=== PATIENT | female | born 1950 | race Caucasian/White ===

== ENCOUNTER 2016-11-25 12:20 | Outpatient (CLI) | payer MEDICARE, OTHER ==
[~2016-11-25] VITALS: Ht 162.6 cm; Wt 109.3 kg
[~2016-11-25 12:20] MED LIST changes: -ACET-2469 PO; -ACET-2650 PO; -ACETAMINOPHEN 325 MG TABLET/CAPLET (TYLENOL) PO ONE; -ASPI-586 PO; -CHOL500044 PO; -CYAN50005 PO; -FUROSEMIDE 40 MG/4 ML INJ (LASIX) IV ONE; -FUROSEMIDE 40 MG/4 ML INJ (LASIX) ONE; -GLIP5TAB13 PO; -HYDR-3730 PO; -LOSA25TA21 PO; -METF1000 PO; -NAPR1TAB25 PO; -NAPR220T66 PO; -NS IV 500 ML 500 ML IV SCH; -PANT40TA3 PO; -PRAM0.12 PO; -PYRI100T2 PO; -[UNRECOGNIZED DRUG - OTHER] PO; -[UNRECOGNIZED DRUG - OTHER] PO; -diphenhydrAMINE 25 MG TAB (BENADRYL) PO ONE
--- OUTSIDE RECORDS SUMMARY | 2016-11-25 12:24 | XMS REPORT | Continuity of Care Document ---
Author Author [facility] Organization [facility] Address Unknown Phone Unavailable Care Team Providers Care Macadam Raker Name Role Phone SUZANNE SALINAS MD PCP Insurance Providers Payer Name Policy Number Subscriber Name Relationship [employer] [id number] Sixto Asencio 18 Self / Same As Patient Blue Cross [facility] Supp [id number] Sixto Asencio 18 Self / Same As Patient Advance Directives Directive Response Recorded Date/Time Advance Directives No 11/30/14 8:33am Health Care Power of [employer] Docent No 11/30/14 8:33am Organ Donor Yes 11/30/14 8:33am Resuscitation Status Full Code 11/30/14 8:33am Problems No known problems or medical conditions. Medications Medication Dose Route Sig Days/Qty Instructions Order Date Discontinued Date Status Metformin HCl (Glucophage) 1 Each PO DAILY 07/03/11 08/19/11 Discontinued Levothyroxine Sodium (Levothroid) 1 Each PO DAILY 07/03/11 11/30/14 Discontinued Hydrochlorothiazide 1 Each PO DAILY 07/03/11 08/19/11 Discontinued Simvastatin 40 Mg PO DAILY 07/03/11 11/30/14 Discontinued Sertraline Hcl 100 Mg PO DAILY 07/03/11 11/30/14 Discontinued Orphenadrine Citrate 100 Mg PO TWICE A DAY 07/03/11 08/19/11 Discontinued Topiramate 50 Mg PO AM 07/03/11 11/30/14 Discontinued Topiramate 100 Mg PO BEDTIME 07/03/11 11/30/14 Discontinued Acetaminophen/Hydrocodone Bitart 1 Each PO Q6 PRN DO NOT TAKE THIS MED WHILE 07/03/11 11/30/14 Discontinued Fexofenadine Hcl 180 Mg PO DAILY PRN 07/03/11 10/02/11 Discontinued Multivitamins 1 Tab PO DAILY 07/03/11 11/30/14 Discontinued Calcium Carbonate/Vitamin D3 1 Each PO DAILY 07/03/11 11/30/14 Discontinued Sitagliptin Phosphate 1 Each PO DAILY 08/19/11 05/22/12 Discontinued Lisinopril 40 Mg PO DAILY 08/19/11 05/22/12 Discontinued Esomeprazole Magnesium 1 Cap PO DAILY 08/19/11 10/02/11 Discontinued Oxycodone Hcl/Acetaminophen 1 - 2 Each PO 4-6HRS PRN 40 Qty MOUTH EVERY 4 -6 HRS 08/21/11 05/22/12 Discontinued Omeprazole 40 Mg PO DAILY 10/02/11 11/30/14 Discontinued Fenofibrate 1 Each PO DAILY 10/02/11 05/22/12 Discontinued Linagliptin 5 Mg PO DAILY 05/22/12 11/30/14 Discontinued Dicyclomine Hcl 10 Mg PO THREE TIMES A DAY 05/22/12 11/30/14 Discontinued Simvastatin 40 Mg PO DAILY 05/22/12 11/30/14 Discontinued Loratadine 10 Mg PO DAILY 05/22/12 11/30/14 Discontinued Cranberry Extract 200 Mg PO DAILY 05/22/12 11/30/14 Discontinued Cholecalciferol (Vitamin D3) 4,000 Unit PO DAILY 05/22/12 11/30/14 Discontinued Topiramate 100 Mg PO TWICE A DAY 11/30/14 Active Vit/Fe Fumarate/Fa 1 Tab PO DAILY 11/30/14 Active Ca Carbonate/Vitamin D3/Vit K 1 Tab PO DAILY 11/30/14 Active Cholecalciferol (Vitamin D3) 1,000 Unit PO DAILY 11/30/14 Active Metformin HCl (Glucophage) 750 Mg PO TWICE A DAY WITH MEALS 11/30/14 11/30/14 Discontinued Oxybutynin Chloride (Ditropan) 5 Mg PO TWICE A DAY 11/30/14 Active Cyanocobalamin 2,500 Mcg SL DAILY 11/30/14 Active Hydrochlorothiazide 25 Mg PO DAILY 11/30/14 Active Potassium Chloride 20 Meq PO DAILY 11/30/14 Active Atorvastatin 20 Mg PO DAILY 11/30/14 Active Levothyroxine Sodium (Levothroid) 100 Mcg PO DAILY 11/30/14 Active Omeprazole 20 Mg PO DAILY 11/30/14 11/30/14 Discontinued Linaclotide 145 Mcg PO DAILY 11/30/14 Active Esomeprazole Magnesium 40 Mg PO 1000 11/30/14 11/30/14 Discontinued Tetrahydrozoline Hcl 1 Drop OU DAILY PRN DRY EYES 11/30/14 Active Metformin Hcl 750 Mg PO TWICE A DAY TAKES 1 & 1/2 (500MG) TABLET Active Pantoprazole Sodium 40 Mg PO TWICE A DAY 90 Qty 11/30/14 Active Social History Social History Problem Response Recorded Date/Time Recent Foreign Travel No 11/30/2014 8:47am Smoking Status Former Smoker 11/30/2014 8:40am Do you dip or chew tobacco? No 11/30/2014 8:40am Query Response Start Date Stop Date Smoking Status Former Smoker 11/30/1986 Hospital Discharge Instructions No hospital discharge instructions. Plan of Care No plan of care. Functional Status No functional status results. Allergies, Adverse Reactions, Alerts Allergen Type Severity Reaction Status Last Updated Adhesive Bandage Allergy Unknown Active 11/30/14 Immunizations Name Given Type Date of Pneumonia Vaccine 11/30/13 Historical Date of Influenza Vaccine 07/01/14 Historical Vital Signs Acute Vital Signs Vital Response Date/Time Temperature (Fahrenheit) 97.5 degrees F (97.6 - 99.5) Temperature (Calculated Celsius) 36.78352 degrees C (36.4 - 37.5) Temperature Source Tympanic Pulse Rate (adult) 68 bpm (60 - 90) Respiratory Rate 18 bpm (12 - 24) O2 Sat by Pulse Oximetry 97 % (88 - 100) Blood Pressure 108/53 mm Hg Pain Pain Intensity 0 Height (Feet) 5 feet Height (Inches) 4.00 inches Height (Calculated Centimeters) 162.130835 cm Weight (Pounds) 234 pounds Weight (Calculated Grams) 217721.616 gm Weight (Calculated Kilograms) 106.795158 kilograms Height 5 ft 4 in Weight 234 lb Body Mass Index 40.2 kg/m^2 Results No known relevant diagnostic tests, laboratory data and/or discharge summary. Procedures Procedure Status Date Provider(s) Esophagogastroduodenoscopy (EGD) with dilation completed 11/30/14 BOBBY YOUNGER MD Encounters Encounter Location Date/Time Registered [facility] Day [facility] 11/30/14 8:05am Registered Clinic [facility] 11/24/14 9:48am
[2016-11-25] MEDS ORDERED: ACET-2650 PO (12:49)
[2016-11-25] MEDS ORDERED: CHOL500044 PO (12:49)
[2016-11-25] MEDS ORDERED: PRAM0.12 PO (12:49)
[2016-11-25] MEDS ORDERED: LOSA25TA21 PO (12:49)
[2016-11-25] MEDS ORDERED: [UNRECOGNIZED DRUG - OTHER] PO (12:49)
[2016-11-25] MEDS ORDERED: NAPR220T66 PO (12:49)
[2016-11-25] MEDS ORDERED: PANT40TA3 PO (12:49)
[2016-11-25] MEDS ORDERED: PYRI100T2 PO (12:49)
[2016-11-25] MEDS ORDERED: GLIP5TAB13 PO (12:49)
[2016-11-25] MEDS ORDERED: [UNRECOGNIZED DRUG - OTHER] PO (12:49)
[2016-11-25] MEDS ORDERED: METF1000 PO (12:49)
[2016-11-25] MEDS ORDERED: NAPR1TAB25 PO (12:49)
[2016-11-25] MEDS ORDERED: ASPI-586 PO (12:49)
[2016-11-25] MEDS ORDERED: CYAN50005 PO (12:49)
[2016-11-25 12:59] VITALS: BP 162/86
[2016-11-28] MEDS ORDERED: HYDR-3730 PO (10:08)
== END 2016-11-25 13:20 | disposition home or self-care (01) ==
LOC: PREOP 12:20
PROVIDERS: ATTEND Surgery Pediatric Surgery
DX: Z01.818 Encounter for other preprocedural examination (principal); Z11.2 Encounter for screening for other bacterial diseases; K21.9 Gastro-esophageal reflux disease without esophagitis
CPT/HCPCS: 87081

== ENCOUNTER → 2016-11-25 | Outpatient (CLI) | payer MEDICARE, OTHER ==
[~2016-11-25] VITALS: Ht 162.6 cm; Wt 109.3 kg
[2016-11-25] VITALS (9 sets, daily range): BP systolic 162–186; BP diastolic 75–86
[~2016-11-25] MED LIST: ACET-2469 PO; ACET-2650 PO; ACETAMINOPHEN 325 MG TABLET/CAPLET (TYLENOL) PO ONE; ACHD5005 PO; ASPI-586 PO; ATOR20TA66 PO; CA C1TAB66 PO; CALC-80 PO; CHOL100061 PO; CHOL40002 PO; CHOL500044 PO; CRAN200C PO; CYAN25003 SL; CYAN50005 PO; DICY10CA12 PO; FENO135C PO; FEXO180T94 PO; FUROSEMIDE 40 MG/4 ML INJ (LASIX) IV ONE; FUROSEMIDE 40 MG/4 ML INJ (LASIX) ONE; GLIP5TAB13 PO; HCT25T PO; HYDR-3730 PO; HYDR25TA4 PO; LEVO125T6 PO; LINA145C PO; LINA5TAB PO; LISI40TA PO; LORA10TA7 PO; LOSA25TA21 PO; LVT.1T PO; METF1000 PO; METF500T8 PO; MTF500T PO; MULT-608 PO; NAPR1TAB25 PO; NAPR220T66 PO; NF-ESOM40C PO; NFPRILOC40 PO; NS IV 500 ML 500 ML IV SCH; OMEP20CA12 PO; ORPH100T PO; OXYB5TAB9 PO; OXYC-12 PO; PANT20TA2 PO; PANT40TA3 PO; POTA-51 PO; PRAM0.12 PO; PREN-93 PO; PYRI100T2 PO; SERT100T PO; SIMV40TA4 PO; SITA100T PO; TETR15DR82 OU; TOPI100T2 PO; TOPI50TA2 PO; [UNRECOGNIZED DRUG - OTHER] PO; [UNRECOGNIZED DRUG - OTHER] PO; diphenhydrAMINE 25 MG TAB (BENADRYL) PO ONE
--- OUTSIDE RECORDS SUMMARY | 2016-11-25 12:32 | XMS REPORT | Continuity of Care Document ---
Author Author [facility] Organization [facility] Address Unknown Phone Unavailable Care Team Providers Care Thaw Shed Heater Tender Name Role Phone SUZANNE SALINAS MD PCP Insurance Providers Payer Name Policy Number Subscriber Name Relationship [employer] Medicare [id number] Sixto Asencio 18 Self / Same As Patient Blue Cross [facility] Supp [id number] Sixto Asencio 16 Self / Same As Patient Advance Directives Directive Response Recorded Date/Time Advance Directives No 11/30/14 8:33am Health Care Power of Janitor Supervisor No 11/30/14 8:33am Organ Donor Yes 11/30/14 [...] F (97.6 - 99.5) Temperature (Calculated Celsius) 36.57938 degrees C (36.4 - 37.5) Temperature Source Tympanic Pulse Rate (adult) 68 bpm (60 - 90) Respiratory Rate 18 bpm (12 - 24) O2 Sat by Pulse Oximetry 97 % (88 - 100) Blood Pressure 108/53 mm Hg Pain Pain Intensity 0 Height (Feet) 5 feet Height (Inches) 4.00 inches Height (Calculated Centimeters) 162.536351 cm Weight (Pounds) 234 pounds Weight (Calculated Grams) 183237.616 gm Weight (Calculated Kilograms) 106.597544 kilograms Height 5 ft 4 in Weight 234 lb Body Mass Index 40.2 kg/m^2 Results No known relevant diagnostic tests, laboratory data and/or discharge summary. Procedures Procedure Status Date Provider(s) Esophagogastroduodenoscopy (EGD) with dilation completed 11/30/14 BOBBY YOUNGER MD Encounters Encounter Location Date/Time Registered Surgical Day Care [facility] 11/30/14 8:05am Registered Clinic [facility] 11/24/14 9:48am
== END ==
LOC: SDC 12:28
PROVIDERS: ATTEND Nurse Practitioner Family
DX: D64.9 Anemia, unspecified (principal)
CPT/HCPCS: 36415; 36430; 85014; 85018; 86850; 86900; 86901; 86920

== ENCOUNTER 2016-11-28 06:29 | Inpatient (IN) | payer MEDICARE, OTHER ==
[~2016-11-28] VITALS: Ht 162.6 cm; Wt 109.3 kg
[~2016-11-28 06:29] MED LIST changes: +ACET-2650 PO; +ASPI-586 PO; +CHOL500044 PO; +CYAN50005 PO; +GLIP5TAB13 PO; +LOSA25TA21 PO; +METF1000 PO; +NAPR1TAB25 PO; +NAPR220T66 PO; +PANT40TA3 PO; +PRAM0.12 PO; +PYRI100T2 PO; +[UNRECOGNIZED DRUG - OTHER] PO; +[UNRECOGNIZED DRUG - OTHER] PO
[2016-11-28] MEDS: LACTATED RINGERS 1,000 ML IV PRN ×2 (06:40→09:32)
[2016-11-28 06:45] VITALS: BP 144/79
[2016-11-28 06:52] LABS: BASOPHILS # (AUTO) 0.1 10^3/uL (0.0-0.1); BASOPHILS % (AUTO) 1 % (0-10); EOSINOPHILS # (AUTO) 0.3 10^3/uL (0.0-0.3); EOSINOPHILS % (AUTO) 4 % (0-10); LYMPHOCYTES # (AUTO) 1.9 X 10^3 (1.0-4.0); LYMPHOCYTES % (AUTO) 26 % (12-44); MEAN CORPUSCULAR HEMOGLOBIN 21 PG (25-34); MEAN CORPUSCULAR HGB CONC 30 G/DL (32-36); MEAN CORPUSCULAR VOLUME 70 FL (80-99); MONOCYTES # (AUTO) 0.5 X 10^3 (0.0-1.0); MONOCYTES % (AUTO) 8 % (0-12); NEUTROPHILS # (AUTO) 4.5 X 10^3 (1.8-7.8); NEUTROPHILS % (AUTO) 62 % (42-75); PLATELET COUNT 267 10^3/uL (130-400); RED BLOOD COUNT 4.96 10^6/uL (4.35-5.85); RED CELL DISTRIBUTION WIDTH 23.5 % (10.0-14.5); WHITE BLOOD COUNT 7.2 10^3/uL (4.3-11.0)
[2016-11-28] MEDS ORDERED: BUP/EPI 0.5% 1:200,000 (SENSORCAINE) 30 ML VIAL ONE (07:08)
[2016-11-28] MEDS ORDERED: ceFAZolin 1 GM/NS 50 ML IVPB IV ONE ×2 (07:15)
[2016-11-28] MEDS ORDERED: ACET-2469 PO (07:20)
[2016-11-28] MEDS ORDERED: ONDANSETRON 4 MG/2 ML (SDV) Z0FRAN ONE ×2 (07:20→07:45)
[2016-11-28] MEDS ORDERED: ROCURONIUM 50 MG/5 ML (ZEMURON) VIAL IV ONE (07:20)
[2016-11-28] MEDS ORDERED: SEVOFLURANE (ULTANE) 15 ML INHAL SOLN ONE ×5 (07:20→10:10)
[2016-11-28] MEDS ORDERED: LIDOCAINE PF 2% 10 ML (XYLOCAINE) AMP ONE (07:20)
[2016-11-28] MEDS ORDERED: proPOfol 200 MG/20 ML (DIPRIVAN) VIAL IV ONE (07:20)
[2016-11-28] MEDS ORDERED: LACTATED RINGERS 1,000 ML IV ONE ×2 (07:20→09:32)
[2016-11-28] MEDS ORDERED: fentaNYL INJECTION 250 MCG/5 ML AMP ONE (07:20)
[2016-11-28] MEDS ORDERED: MIDAZOLAM 2 MG/2 ML (VERSED) VIAL ONE (07:21)
[2016-11-28] MEDS ORDERED: FAMOTIDINE 20MG/2ML IV (PEPCID) ONE (07:45)
--- NOTE | 2016-11-28 07:53 | Progress Note-Pre Operative ---
Pre-Operative Progress Note H&P Reviewed The H&P was reviewed, patient examined and no changes noted. Date H&P Reviewed: Nov 28, 2016 Time H&P Reviewed: 07:40 Pre-Operative Diagnosis: Reflux, regurgation, abdominal pain LINNEA ARGUETA APRN Nov 28, 2016 07:53
[2016-11-28] MEDS ORDERED: HYDROcodone/APAP 5 MG/325 MG (LORTAB) TAB PO ONE (08:00)
[2016-11-28] MEDS ORDERED: FAMOTIDINE 20MG/2ML IV (PEPCID) IV ONE (08:00)
[2016-11-28] MEDS ORDERED: ONDANSETRON 4 MG/2 ML (SDV) Z0FRAN IVP PRN (08:00)
[2016-11-28] MEDS ORDERED: ONDANSETRON 4 MG/2 ML (SDV) Z0FRAN IV ONE ×2 (08:00→10:30)
[2016-11-28] MEDS ORDERED: ACETAMINOPHEN 325 MG TABLET/CAPLET (TYLENOL) PO PRN (08:00)
[2016-11-28] MEDS ORDERED: morphine INJ 10 MG/ML 1ML (SYR OR VIAL) IVP PRN (08:00)
--- NOTE | 2016-11-28 10:04 | Progress Note-Post Operative ---
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
[2016-11-28] MEDS ORDERED: GLYCOPYRROLATE 0.2 MG/ML (ROBINUL) 2 ML VIAL ONE (10:08)
[2016-11-28] MEDS ORDERED: HYDR-3730 PO (10:08)
[2016-11-28] MEDS ORDERED: NEOSTIGMINE (BLOXIVERZ ) 1 MG/1ML 10 ML VIAL ONE (10:08)
--- NOTE | 2016-11-28 10:09 | Discharge Inst-Surgical ---
D/C Lap Instructions-CARISA New, Converted, or Re-Newed RX: RX on Chart Follow Up Appt in 2 weeks Activity as tolerated No driving for 24 hours No [address] while on pain medications Incentive Spirometry use every 2 hours while awake clear liquid Diet 3 days then advance as tolerated Symptoms to Report: Fever over 101 degree F, Nausea/Vomiting Infection Signs and Symptoms to report: Increased redness, Foul odor of wound, Increased drainage Bathing instructions: May shower Operative Area Clean/Dry; Keep incision clean/dry If any problems/questions: Contact your physician or go to Emergency Room BOBBY YOUNGER MD Nov 28, 2016 10:09 am
[2016-11-28] MEDS ORDERED: morphine INJ 10 MG/ML 1ML (SYR OR VIAL) ONE (10:25)
[2016-11-28] MEDS ORDERED: fentaNYL INJECTION 100 MCG/2 ML AMP IV PRN (10:30)
[2016-11-28] MEDS ORDERED: HYDROmorphone (DILAUDID) 2 MG/ML VIAL IV PRN (10:30)
[2016-11-28] MEDS: morphine INJ 10 MG/ML 1ML (SYR OR VIAL) IV PRN ×2 (10:31→10:38)
[2016-11-28] MEDS ORDERED: HYDROmorphone (DILAUDID) 2 MG/ML VIAL ONE (10:45)
--- NOTE | 2016-11-28 11:03 | Anesthesia-General Post-Op ---
General Patient Condition Mental Status/LOC: Same as Preop Cardiovascular: Satisfactory Nausea/Vomiting: Absent Respiratory: Satisfactory Pain: Controlled Complications: Absent Post Op Complications Complications None Follow Up Care/Instructions Patient Instructions None needed. Anesthesia/Patient Condition Patient Condition Patient is doing well, no complaints, stable vital signs, no apparent adverse anesthesia problems. No complications reported per nursing. D/C home per [facility] Criteria: SUGEY Glover DO Nov 28, 2016 11:03
[2016-11-28] MEDS ORDERED: HYDROcodone/APAP 7.5 MG/325 MG (LORTAB, LORCET PLUS) TABLET PO ONE (11:13)
[2016-11-28 11:15] VITALS: BP 137/61
[2016-11-28] MEDS ORDERED: HYDROcodone/APAP 7.5 MG/325 MG (LORTAB, LORCET PLUS) TABLET PO PRN ×2 (11:30)
[2016-11-28 11:45] VITALS: BP 130/61
[2016-11-28] MEDS ORDERED: KETOROLAC 30 MG/ML VIAL ONE (11:54)
[2016-11-28] MEDS ORDERED: KETOROLAC 30 MG/ML VIAL IVP ONE (12:00)
--- NOTE | 2016-11-28 12:13 | OPERATIVE REPORT ---
PROCEDURE PHYSICIAN: BOBBY NEUMANN DATE OF PROCEDURE: 11/28/2016 ATTENDING PRIMARY CARE PHYSICIAN: Dr. Gloria Gorman. PREOPERATIVE DIAGNOSIS: 1. Gastroesophageal reflux disease. 2. Peptic ulcer disease. 3. Anemia requiring blood transfusion. POSTOPERATIVE DIAGNOSIS: 1. Gastroesophageal reflux disease. 2. Peptic ulcer disease. 3. Anemia requiring blood transfusion. 4. Mild inferior gastric restrictive device slippage. PROCEDURE: Diagnostic laparoscopy and removal gastric restrictive device and access port. SURGEON: Dr. Neumann. SHOP COOPER: Govind Barton APRN ANESTHESIA: General endotracheal. ESTIMATED BLOOD LOSS: Minimal. FINDINGS: Mild inferior band slippage. There was hepatomegaly and liver steatosis. DISPOSITION: The patient tolerated the procedure well. BRIEF HISTORY: Ms. Leandra Reyes is a 66-year-old female known to us. She is status post laparoscopic adjustable gastric band with an Allergan BG band March 2006 in [place]. She has followed-up with us on multiple times for postoperative counseling as well as adjustments. She has had a long-standing history of gastroesophageal reflux disease; however, has had worsening issues with reflux as well as regurgitation despite having fluid removed from the band. She does state that she exercises regularly at the [facility] 3 to 4 times a week for 60 minutes sessions. She does follow a high protein diet with lean meat protein sources and does take at least 64 fluid ounces of water daily. She has taken multiple PPI acid reducers including Nexium, Protonix and Carafate. She was found to be anemic on several occasions requiring blood transfusion well. The patient was brought to the operating room, laid supine on the table. After adequate IV pain and sedative medications and general endotracheal intubation the abdomen was prepped and draped in the standard surgical fashion. 0.5% Marcaine with epinephrine was then used to anesthetize the overlying skin in left upper abdominal quadrant. A small transverse incision made using a 15 blade. An 0 silk suture was applied to the medial aspect of the incision for retraction. A Veress needle inserted with a low opening pressure of 0 mmHg the abdomen was then insufflated to 15 mmHg pressure. The Veress needle removed and a 5 mm Xcel trocar placed followed by a 5 mm, 45 degrees angle laparoscope, visualizing the peritoneal cavity. A four-quadrant abdominal exploration was performed. The gastric restrictive device was not visualized at this time. There was moderate hepatomegaly with liver steatosis identified as well. Under direct visualization we then proceeded to place the two mid abdominal 10 mm ports after the skin and peritoneum were anesthetized using 0.5% Marcaine and a transverse skin incision made using a 15 blade. An area in the epigastric region was then anesthetized and a small skin incision made using an 11 blade. Through this Incision a tract through the abdominal wall layers was created using trocar to a 5 mm port. Through this opening, a medium size Yue liver retractor was placed in the left lobe of the liver and retracted anteriorly and superiorly. The patient was then placed in a steep reverse Trendelenburg position. The gastric restrictive device was identified and appeared to be a slightly enlarged gastric pouch and a mild inferior band slippage. Due to this and her history of anemia it was decided to remove the gastric restrictive device as well at the access port. The adhesion tissue to the band buckle was taken down using Sonicision. The band was then unclasped. The band tubing was cut next to the port and the entire band removed intact. Good hemostasis was observed. The 10 mm port, fascia and peritoneum were then closed under direct visualization using a Jb-Ju device and 0 Vicryl suture. The abdomen was desufflated. The skin incision to the mid abdominal right of midline port was then extended laterally and the entire port attached to the fascia as well as the sutures were removed using electrocautery. Good hemostasis was observed. The subcutaneous tissue was then reapproximated using 3-0 Vicryl interrupted sutures. Remaining port removed and all skin incisions were closed using 4-0 Monocryl running subcuticular sutures. Wounds were then cleaned and covered Dermabond. The patient tolerated the procedure well. We will start IV pain and oral medication as well as a clear liquid diet. Once she is tolerating clears, has good pain control with oral pain medications and ambulating well, we will discharge her home. We will recommend a clear liquid diet for the next week and then slowly advanced as tolerated. We will also want her to continue with her PPI acid sewing line baler on a daily basis. Job ID: [id number] Dictated Date: 11/28/2016 10:18:01 Energy Derivatives Trader Date: 11/28/2016 11:52:23 / kedar
[2016-11-28 12:15] VITALS: BP 131/68
[2016-11-28 12:51] VITALS: BP 131/68
--- OUTSIDE RECORDS SUMMARY | 2016-12-01 08:14 | XMS REPORT | Continuity of Care Document ---
Author Author [facility] Address Unknown Phone Unavailable Allergies Active Description Code Type Severity Reaction Onset Reported/Identified Relationship to Patient Clinical Status Yes Adhesive Bandage [id number] Drug Allergy Unknown N/A 11/30/2014 Yes nickel [id number] Drug Allergy Unknown HIVES 11/25/2016 Medications Problems Date Dx Coded Attending Type Code Diagnosis Diagnosed By 08/21/2011 Ot 272.4 HYPERLIPIDEMIA NEC/NOS 08/21/2011 Ot 401.9 HYPERTENSION NOS 08/21/2011 Ot 727.61 ROTATOR CUFF RUPTURE 08/21/2011 Ot 729.1 MYALGIA AND MYOSITIS NOS 08/21/2011 Ot V15.82 HISTORY OF TOBACCO USE 08/21/2011 Ot V58.69 OTH MED,LT,CURRENT USE 10/02/2011 Ot 719.41 JOINT PAIN-SHLDER 10/02/2011 Ot 923.00 CONTUSION SHOULDER REG 10/02/2011 Ot E000.8 OTHER EXTERNAL CAUSE STATUS 10/02/2011 Ot E849.0 ACCIDENT IN HOME 10/02/2011 Ot E884.4 FALL FROM BED 05/25/2012 Ot 562.10 DIVERTICULOSIS COLON (W/O MENT OF HEMORR 05/25/2012 Ot 564.1 IRRITABLE BOWEL SYNDROME 05/25/2012 Ot V58.69 OT MED,LT,CURRENT USE 04/22/2013 244.9 HYPOTHYROIDISM 04/22/2013 250.00 DIABETES II CONTROLLED (UNCOMPLICATED) 04/22/2013 272.4 HYPERLIPIDEMIA 04/22/2013 401.1 HYPERTENSION, BENIGN ESSENTIAL 04/22/2013 V82.81 SPECIAL SCREENING FOR OSTEOPOROSIS 04/22/2013 244.9 HYPOTHYROIDISM 04/22/2013 250.00 DIABETES II CONTROLLED (UNCOMPLICATED) 04/22/2013 272.4 HYPERLIPIDEMIA 04/22/2013 401.1 HYPERTENSION, BENIGN ESSENTIAL 04/22/2013 V82.81 SPECIAL SCREENING FOR OSTEOPOROSIS 04/22/2013 244.9 HYPOTHYROIDISM 04/22/2013 250.00 DIABETES II CONTROLLED (UNCOMPLICATED) 04/22/2013 272.4 HYPERLIPIDEMIA 04/22/2013 401.1 HYPERTENSION, BENIGN ESSENTIAL 04/22/2013 V82.81 SPECIAL SCREENING FOR OSTEOPOROSIS 04/22/2013 TORRES DO, JAZZY K 244.9 HYPOTHYROIDISM 04/22/2013 TORRES DO, JAZZY K 250.00 DIABETES II CONTROLLED (UNCOMPLICATED) 04/22/2013 TORRES DO, JAZZY K 272.4 HYPERLIPIDEMIA 04/22/2013 OTRRES DO, JAZZY K 401.1 HYPERTENSION, BENIGN ESSENTIAL 04/22/2013 TORRES DO, JAZZY K V82.81 SPECIAL SCREENING FOR OSTEOPOROSIS 04/22/2013 MALIA TAI MD N 244.9 HYPOTHYROIDISM 04/22/2013 MALIA TAI MD N 250.00 DIABETES II CONTROLLED (UNCOMPLICATED) 04/22/2013 MALIA TAI MD N 272.4 HYPERLIPIDEMIA 04/22/2013 MALIA TAI MD N 401.1 HYPERTENSION, BENIGN ESSENTIAL 04/22/2013 MALIA TAI MD N V82.81 SPECIAL SCREENING FOR OSTEOPOROSIS 04/22/2013 MALIA TAI MD N 244.9 HYPOTHYROIDISM 04/22/2013 MALIA TAI MD N 250.00 DIABETES II CONTROLLED (UNCOMPLICATED) 04/22/2013 MALIA TAI MD N 272.4 HYPERLIPIDEMIA 04/22/2013 MALIA TAI MD N 401.1 HYPERTENSION, BENIGN ESSENTIAL 04/22/2013 MALIA TAI MD N V82.81 SPECIAL SCREENING FOR OSTEOPOROSIS 04/22/2013 MALIA TAI MD N 244.9 HYPOTHYROIDISM 04/22/2013 MALIA TAI MD N 250.00 DIABETES II CONTROLLED (UNCOMPLICATED) 04/22/2013 MALIA TAI MD N 272.4 HYPERLIPIDEMIA 04/22/2013 MALIA TAI MD N 401.1 HYPERTENSION, BENIGN ESSENTIAL 04/22/2013 MALIA TAI MD N V82.81 SPECIAL SCREENING FOR OSTEOPOROSIS 04/22/2013 MALIA TAI MD N 244.9 HYPOTHYROIDISM 04/22/2013 MALIA TAI MD N 250.00 DIABETES II CONTROLLED (UNCOMPLICATED) 04/22/2013 MALIA TAI MD N 272.4 HYPERLIPIDEMIA 04/22/2013 MALIA TAI MD N 401.1 HYPERTENSION, BENIGN ESSENTIAL 04/22/2013 MALIA TAI MD N V82.81 SPECIAL SCREENING FOR OSTEOPOROSIS 04/22/2013 MALIA TAI MD N 244.9 HYPOTHYROIDISM 04/22/2013 MALIA TAI MD N 250.00 DIABETES II CONTROLLED (UNCOMPLICATED) 04/22/2013 MALIA TAI MD N 272.4 HYPERLIPIDEMIA 04/22/2013 MALIA TAI MD N 401.1 HYPERTENSION, BENIGN ESSENTIAL 04/22/2013 MALIA TAI MD V82.81 SPECIAL SCREENING FOR OSTEOPOROSIS 04/22/2013 TORRES DO JAZZY K 244.9 HYPOTHYROIDISM 04/22/2013 TORRES DO, JAZZY K 250.00 DIABETES II CONTROLLED (UNCOMPLICATED) 04/22/2013 TORRES DO JAZZY K 272.4 HYPERLIPIDEMIA 04/22/2013 TORRES DO JAZZY K 401.1 HYPERTENSION, BENIGN ESSENTIAL 04/22/2013 TORRES DO JAZZY K V82.81 SPECIAL SCREENING FOR OSTEOPOROSIS 04/22/2013 MALIA TAI MD N 244.9 HYPOTHYROIDISM 04/22/2013 MALIA TAI MD N 250.00 DIABETES II CONTROLLED (UNCOMPLICATED) 04/22/2013 MALIA TAI MD N 272.4 HYPERLIPIDEMIA 04/22/2013 MALIA TAI MD 401.1 HYPERTENSION, BENIGN ESSENTIAL 04/22/2013 MALIA TAI MD N V82.81 SPECIAL SCREENING FOR OSTEOPOROSIS 04/22/2013 MALIA TAI MD N 244.9 HYPOTHYROIDISM 04/22/2013 MALIA TAI MD N 250.00 DIABETES II CONTROLLED (UNCOMPLICATED) 04/22/2013 MALIA TAI MD 272.4 HYPERLIPIDEMIA 04/22/2013 MALIA TAI MD N 401.1 HYPERTENSION, BENIGN ESSENTIAL 04/22/2013 MALIA TAI MD N V82.81 SPECIAL SCREENING FOR OSTEOPOROSIS 04/22/2013 SAIRA MALHOTRA MD 244.9 HYPOTHYROIDISM 04/22/2013 SAIRA MALHOTRA MD 250.00 DIABETES II CONTROLLED (UNCOMPLICATED) 04/22/2013 SAIRA MALHOTRA MD 272.4 HYPERLIPIDEMIA 04/22/2013 SAIRA MALHOTRA MD 401.1 HYPERTENSION, BENIGN ESSENTIAL 04/22/2013 SAIRA MALHOTRA MD V82.81 SPECIAL SCREENING FOR OSTEOPOROSIS 05/11/2013 727.03 TRIGGER FINGER (ACQUIRED) 05/11/2013 V76.10 BREAST CANCER SCREENING 05/11/2013 727.03 TRIGGER FINGER (ACQUIRED) 05/11/2013 V76.10 BREAST CANCER SCREENING 05/11/2013 JAZZY TORRES DO 727.03 TRIGGER FINGER (ACQUIRED) 05/11/2013 JAZZY TORRES DO K V76.10 BREAST CANCER SCREENING 05/11/2013 MALIA TAI MD 727.03 TRIGGER FINGER (ACQUIRED) 05/11/2013 MALIA TAI MD V76.10 BREAST CANCER SCREENING 05/11/2013 MALIA TAI MD 727.03 TRIGGER FINGER (ACQUIRED) 05/11/2013 MALIA TAI MD V76.10 BREAST CANCER SCREENING 05/11/2013 MALIA TAI MD 727.03 TRIGGER FINGER (ACQUIRED) 05/11/2013 MALIA TAI MD V76.10 BREAST CANCER SCREENING 05/11/2013 MALIA TAI MD 727.03 TRIGGER FINGER (ACQUIRED) 05/11/2013 MALIA TAI MD V76.10 BREAST CANCER SCREENING 05/11/2013 MALIA TAI MD 727.03 TRIGGER FINGER (ACQUIRED) 05/11/2013 MALIA TAI MD V76.10 BREAST CANCER SCREENING 05/11/2013 JAZZY TORRES DO 727.03 TRIGGER FINGER (ACQUIRED) 05/11/2013 JAZZY TORRES DO V76.10 BREAST CANCER SCREENING 05/11/2013 MALIA TAI MD 727.03 TRIGGER FINGER (ACQUIRED) 05/11/2013 MALIA TAI MD V76.10 BREAST CANCER SCREENING 05/11/2013 MALIA TAI MD 727.03 TRIGGER FINGER (ACQUIRED) 05/11/2013 MALIA TAI MD V76.10 BREAST CANCER SCREENING 05/11/2013 SAIRA MALHOTRA MD 727.03 TRIGGER FINGER (ACQUIRED) 05/11/2013 SAIRA MALHOTRA MD V76.10 BREAST CANCER SCREENING 06/01/2013 JAZZY TORRES DO 338.29 PAIN - CHRONIC 06/01/2013 JAZZY TORRES DO V04.81 FLU SHOT 06/01/2013 MALIA TAI MD 338.29 PAIN - CHRONIC 06/01/2013 MALIA TAI MD V04.81 FLU SHOT 06/01/2013 MALIA TAI MD 338.29 PAIN - CHRONIC 06/01/2013 MALIA TAI MD V04.81 FLU SHOT 06/01/2013 MALIA TAI MD N 338.29 PAIN - CHRONIC 06/01/2013 MALIA TAI MD V04.81 FLU SHOT 06/01/2013 MALIA TAI MD 338.29 PAIN - CHRONIC 06/01/2013 MALIA TAI MD V04.81 FLU SHOT 06/01/2013 MALIA TAI MD 338.29 PAIN - CHRONIC 06/01/2013 MALIA TAI MD V04.81 FLU SHOT 06/01/2013 JAZZY TORRES DO 338.29 PAIN - CHRONIC 06/01/2013 JAZZY TORRES DO V04.81 FLU SHOT 06/01/2013 MALIA TAI MD 338.29 PAIN - CHRONIC 06/01/2013 MALIA TAI MD V04.81 FLU SHOT 06/01/2013 MALIA TAI MD 338.29 PAIN - CHRONIC 06/01/2013 MALIA TAI MD V04.81 FLU SHOT 06/01/2013 SAIRA MALHOTRA MD 338.29 PAIN - CHRONIC 06/01/2013 SAIRA MALHOTRA MD V04.81 FLU SHOT 10/28/2013 MALIA TAI MD 112.3 CANDIDIASIS OF SKIN AND NAILS 10/28/2013 MALIA TAI MD 530.81 GERD 10/28/2013 MALIA TAI MD 112.3 CANDIDIASIS OF SKIN AND NAILS 10/28/2013 MALIA TAI MD 530.81 GERD 10/28/2013 MALIA TAI MD 112.3 CANDIDIASIS OF SKIN AND NAILS 10/28/2013 MALIA TAI MD 530.81 GERD 10/28/2013 MALIA TAI MD 112.3 CANDIDIASIS OF SKIN AND NAILS 10/28/2013 MALIA TAI MD 530.81 GERD 10/28/2013 JAZZY TORRES DO 112.3 CANDIDIASIS OF SKIN AND NAILS 10/28/2013 JAZZY TORRES DO 530.81 GERD 10/28/2013 MALIA TAI MD N 112.3 CANDIDIASIS OF SKIN AND NAILS 10/28/2013 MALIA TAI MD N 530.81 GERD 10/28/2013 MALIA TAI MD N 112.3 CANDIDIASIS OF SKIN AND NAILS 10/28/2013 MALIA TAI MD N 530.81 GERD 10/28/2013 SAIRA MALHOTRA MD 112.3 CANDIDIASIS OF SKIN AND NAILS 10/28/2013 SAIRA MALHOTRA MD 530.81 GERD 12/30/2013 MALIA TAI MD N 787.20 DYSPHAGIA UNSPECIFIED 12/30/2013 MALIA TAI MD 787.20 DYSPHAGIA UNSPECIFIED 12/30/2013 MALIA TAI MD 787.20 DYSPHAGIA UNSPECIFIED 12/30/2013 JAZZY TORRES DO K 787.20 DYSPHAGIA UNSPECIFIED 12/30/2013 MALIA TAI MD N 787.20 DYSPHAGIA UNSPECIFIED 12/30/2013 MALIA TAI MD 787.20 DYSPHAGIA UNSPECIFIED 12/30/2013 SAIRA MALHOTRA MD 787.20 DYSPHAGIA UNSPECIFIED 03/08/2014 MALIA TAI MD N 564.1 IRRITABLE BOWEL SYNDROME 03/08/2014 MALIA TAI MD N 702.0 ACTINIC KERATOSIS 03/08/2014 MALIA TAI MD N 780.79 FATIGUE 03/08/2014 MALIA TAI MD N 564.1 IRRITABLE BOWEL SYNDROME 03/08/2014 MALIA TAI MD N 702.0 ACTINIC KERATOSIS 03/08/2014 MALIA TAI MD N 780.79 FATIGUE 03/08/2014 JAZZY TORRES DO K 564.1 IRRITABLE BOWEL SYNDROME 03/08/2014 JAZZY TORRES DO K 702.0 ACTINIC KERATOSIS 03/08/2014 JAZZY TORRES DO K 780.79 FATIGUE 03/08/2014 MALIA TAI MD N 564.1 IRRITABLE BOWEL SYNDROME 03/08/2014 MALIA TAI MD N 702.0 ACTINIC KERATOSIS 03/08/2014 MALIA TAI MD N 780.79 FATIGUE 03/08/2014 MALIA TAI MD N 564.1 IRRITABLE BOWEL SYNDROME 03/08/2014 MALIA TAI MD 702.0 ACTINIC KERATOSIS 03/08/2014 MALIA TAI MD 780.79 FATIGUE 03/08/2014 SAIRA MALHOTRA MD 564.1 IRRITABLE BOWEL SYNDROME 03/08/2014 SAIRA MALHOTRA MD 702.0 ACTINIC KERATOSIS 03/08/2014 SAIRA MALHOTRA MD 780.79 FATIGUE 03/15/2014 TORRES DO, JAZZY K 280.9 IRON DEFICIENCY ANEMIA UNSPECIFIED 03/15/2014 TORRES DO, JAZZY K 287.5 THROMBOCYTOPENIA UNSPECIFIED 03/15/2014 MALIA TAI MD N 280.9 IRON DEFICIENCY ANEMIA UNSPECIFIED 03/15/2014 MALIA TAI MD N 287.5 THROMBOCYTOPENIA UNSPECIFIED 03/15/2014 MALIA TAI MD N 280.9 IRON DEFICIENCY ANEMIA UNSPECIFIED 03/15/2014 MALIA TAI MD 287.5 THROMBOCYTOPENIA UNSPECIFIED 03/15/2014 SAIRA MALHOTRA MD 280.9 IRON DEFICIENCY ANEMIA UNSPECIFIED 03/15/2014 SAIRA MALHOTRA MD 287.5 THROMBOCYTOPENIA UNSPECIFIED 05/31/2014 SAIRA MALHOTRA MD 466.0 ACUTE BRONCHITIS 08/03/2014 RITA MILLS, SUZANNE Landaverde Ot 280.9 08/03/2014 RITA MILLS, SUZANNE Landaverde Ot 356.9 11/30/2014 BOBBY YOUNGER MD Ot 530.11 REFLUX ESOPHAGITIS 11/30/2014 BOBBY YOUNGER MD Ot 535.50 UNSP GASTRITIS GASTRODUODENITIS W/O ME 11/30/2014 BOBBY YOUNGER MD Ot 535.60 DUODENITIS, WITHOUT MENTION OF HEMORRHAG 12/23/2014 Ot V72.84 01/17/2015 Ot 722.52 01/17/2015 Ot 786.50 01/17/2015 Ot 722.4 01/17/2015 Ot 719.41 01/17/2015 Ot 722.0 01/17/2015 Ot 840.4 01/17/2015 Ot E000.8 01/17/2015 Ot E849.0 01/17/2015 Ot E888.9 01/17/2015 Ot V72.63 01/17/2015 Ot V72.81 01/17/2015 Ot V74.8 01/17/2015 Ot 794.4 01/17/2015 Ot 840.4 01/17/2015 Ot E000.8 01/17/2015 Ot E849.0 01/17/2015 Ot E888.9 01/17/2015 Ot V72.84 01/17/2015 Ot V74.8 01/17/2015 Ot 724.02 01/17/2015 Ot V76.12 01/17/2015 Ot V72.84 01/17/2015 Ot 611.89 01/17/2015 ABIDA MILLS, MALIA N Ot 733.00 01/17/2015 ABIDA MILLS, MALIA N Ot V82.81 01/17/2015 ABIDA MILLS, MALIA N Ot V76.12 01/17/2015 ABIDA MILLS, MALIA Shah Ot 787.20 01/17/2015 ABIDA MILLS, MALIA N Ot V10.87 01/17/2015 ABIDA MILLS, MALIA N Ot 530.81 01/17/2015 ABIDA MILLS, MALIA Shah Ot 787.20 01/17/2015 RITA MILLS, SUZANNE Landaverde Ot 280.9 01/17/2015 SUZANNE SALINAS MD Ot 356.9 01/17/2015 Ot V72.84 01/17/2015 BAY RAMEY PLASTICS FITTER Ot 789.00 01/17/2015 BAY RAMEY PLASTICS FITTER Ot 789.00 01/17/2015 BAY RAMEY PLAST[employer] FITTER Ot 789.00 01/27/2015 BAY RAMEY PLAST[employer] FITTER Ot 789.00 12/28/2015 BAY RAMEY PLAST[employer] FITTER Ot Z12.31 ENCNTR SCREEN MAMMOGRAM FOR MALIGNANT NE 11/25/2016 Ot 722.4 CERVICAL DISC DEGEN 11/25/2016 Ot 719.41 JOINT PAIN-SHLDER 11/25/2016 Ot 722.0 CERVICAL DISC DISPLACMNT 11/25/2016 Ot 840.4 SPRAIN ROTATOR CUFF 11/25/2016 Ot E000.8 OTHER EXTERNAL CAUSE STATUS 11/25/2016 Ot E849.0 ACCIDENT IN HOME 11/25/2016 Ot E888.9 FALL NOS 11/25/2016 Ot V72.63 PRE-PROCEDURAL LABORATORY EXAMINATION 11/25/2016 Ot V72.81 [id number] CARDIOVASCULAR 11/25/2016 Ot V74.8 SCREEN-BACTERIAL DIS NEC 11/25/2016 Ot 794.4 ABN KIDNEY FUNCT STUDY 11/25/2016 Ot 840.4 SPRAIN ROTATOR CUFF 11/25/2016 Ot E000.8 OTHER EXTERNAL CAUSE STATUS 11/25/2016 Ot E849.0 ACCIDENT IN HOME 11/25/2016 Ot E888.9 FALL NOS 11/25/2016 Ot V72.84 EXAM PRE-OPERATIVE NOS 11/25/2016 Ot V74.8 SCREEN-BACTERIAL DIS NEC 11/25/2016 Ot 724.02 SPINAL STENOSIS, LUMBAR REG, W/OUT NEURO 11/25/2016 Ot V76.12 OTH SCREEN MAMMO-MALIGN NEOPLASM OF CHRISS 11/25/2016 Ot V72.84 EXAM PRE-OPERATIVE NOS 11/25/2016 Ot 611.89 OTHER SPECIFIED DISORDERS OF BREAST 11/25/2016 MALIA TAI MD Ot 733.00 OSTEOPOROSIS NOS 11/25/2016 MALIA TAI MD Ot V82.81 SCREENING FOR OSTEOPOROSIS 11/25/2016 MALIA TAI MD Ot V76.12 OTH SCREEN MAMMO-MALIGN NEOPLASM OF CHRISS 11/25/2016 MALIA TAI MD Ot 787.20 DYSPHAGIA, UNSPECIFIED 11/25/2016 MALIA TAI MD Ot V10.87 HX OF THYROID MALIGNANCY 11/25/2016 MALIA TAI MD Ot 530.81 ESOPHAGEAL REFLUX 11/25/2016 MALIA TAI MD Ot 787.20 DYSPHAGIA, UNSPECIFIED 11/25/2016 SUZANNE SALINAS MD Ot 280.9 IRON DEFIC ANEMIA NOS 11/25/2016 SUZANNE SALINAS MD Ot 356.9 IDIO PERIPH NEURPTHY NOS 11/25/2016 Ot V72.84 EXAM PRE-OPERATIVE NOS 11/25/2016 BAY RAMEY Ot 789.00 ABDOMINAL PAIN, UNSPECIFIED SITE 11/25/2016 BAY RAMEY Ot Z12.31 ENCNTR SCREEN MAMMOGRAM FOR MALIGNANT NE 11/26/2016 BOBBY YOUNGER MD Ot K21.9 GASTRO-ESOPHAGEAL REFLUX DISEASE WITHOUT 11/26/2016 BOBBY YOUNGER MD Ot Z01.818 ENCOUNTER FOR OTHER PREPROCEDURAL EXAMIN 11/26/2016 BOBBY YOUNGER MD Ot Z11.2 ENCOUNTER FOR SCREENING FOR OTHER BACTER Procedures Code [place] [address] PAP SMEAR 2011 19805 MAMMOGRAM, SCREENING 05/01/2012 67171 MAMMOGRAM DX, LEFT 12/25/2012 39528 BONE MINERAL DENSITY, HEEL US (IN HOUSE) 04/22/2013 54155 DEXA BONE DENSITY, AXIAL 04/22/2013 04984 INJ TENDON SHEATH/LIGAMENT 05/11/2013 54659 MAMMOGRAM, SCREENING 05/11/2013 21679 ROUTINE VENIPUNCTURE 05/12/2013 48593 A1C (IN-HOUSE) 54483 CMP 05/12/2013 10947 LIPID PANEL 05/12 [id number] GFR CALC (RESULT ONLY) 05/12/2013 94541 TSH 05/12/2013 G0008 FLU ADMINISTRATION (MEDICARE ONLY) 06/01/2013 35716 A1C (IN-HOUSE) 36624 BARIUM SWALLOW XRAY MODIFIED 12/30/2013 37862 US THYROID ULTRASOUND 12/30/2013 99724 TSH 03/08/2014 22216 CBC 03/08/2014 67364 ROUTINE VENIPUNCTURE 03/10/2014 20392 CBC 03/10/2014 74690 T4 FREE 2013 37380 T3 TOTAL 2013 92099 ROUTINE VENIPUNCTURE 03/16/2014 60096 IRON SERUM 2013 04228 IRON BNDNG CAP 39770 T4 FREE 2013 13874 TSH 03/16/2014 78754 FERRITIN 2013 [id number] IMMATURE PLATELET FRACTION (RESULT ONLY) 03/16/2014 [id number] COMPLETE BLOOD COUNT NO DIFF (CBC Result) 03/16/2014 06195 DIFFERENTIAL WBC COUNT (CBC DIFF RESULT) 03/16/2014 30620 RETICULOCYTE COUNT 03/16/2014 67496 PERIPHERAL BLOOD SMEAR W/ PATH REPORT 03/17/2014 IRGROUP IRON GROUP (Iron,TIBC, Ferritin) 03/17/2014 70125 PERIPHERIAL BLOOD SMEAR 03/17/2014 [id number] HEMATOLOGY OTHER REPORT 03/17/2014 50617 HEMOCCULT 2013 56133 HEMOCCULT 2013 Results Test Result Range RED CELLS LEUKO REDUCED AS1 - 11/25/16 13:14 RED CELLS LEUKO REDUCED AS1 TRANSFUSED 1409 NRG Blood type T Indirect antibody screen panel - 11/25/16 13:14 ABO+Rh group AP NRG Transfusion band number [id number] Blood group antibody screen NEGATIVE NRG Methicillin resistant Staphylococcus aureus (MRSA) screening culture - 13:19 Methicillin resistant Staphylococcus aureus (MRSA) screening culture NEG NRG Whole blood hemoglobin and hematocrit panel - 11/25/16 21:30 Venous blood hemoglobin measurement (mass/volume) 9.6 g/dL 11.5-16.0 Blood hematocrit (volume fraction) 32 % 35-52 Complete blood count (CBC) with automated white blood cell (WBC) differential - 11/28/16 06:41 Blood leukocytes automated count (number/volume) 7.2 10*3/ uL 4.3-11.0 Blood erythrocytes automated count (number/volume) 4.96 10*6 /uL 4.35-5.85 Venous blood hemoglobin measurement (mass/volume) 10.4 g/dL 11.5-16.0 Blood hematocrit (volume fraction) 35 % 35-52 Automated erythrocyte mean corpuscular volume 70 [foz_us] 80-99 Automated erythrocyte mean corpuscular hemoglobin (mass per erythrocyte) 21 pg 25-34 Automated erythrocyte mean corpuscular hemoglobin concentration measurement ( mass/volume) 30 g/dL 32-36 Automated erythrocyte distribution width ratio 23.5 % 10.0-14.5 Automated blood platelet count (count/volume) 267 10*3/uL 130-400 Automated blood platelet mean volume measurement 10.0 [foz_ us] 7.4-10.4 Automated blood neutrophils/100 leukocytes 62 % 42-75 Automated blood lymphocytes/100 leukocytes 26 % 12-44 Blood monocytes/100 leukocytes 8 % 0-12 Automated blood eosinophils/100 leukocytes 4 % 0-10 Automated blood basophils/100 leukocytes 1 % 0-10 Blood neutrophils automated count (number/volume) 4.5 10*3 1.8-7.8 Blood lymphocytes automated count (number/volume) 1.9 10*3 1.0-4.0 Blood monocytes automated count (number/volume) 0.5 10*3 0.0-1.0 Automated eosinophil count 0.3 10*3/uL 0.0-0.3 Automated blood basophil count (count/volume) 0.1 10*3/uL 0.0-0.1 Capillary blood glucose measurement by glucometer (mass/volume) - 11/28/16 06: 59 Capillary blood glucose measurement by glucometer (mass/volume) 147 mg/dL 70-110 Encounters ACCT No. Visit Date/Time Discharge Status Pt. Type Provider Facility Loc./Unit Complaint [id number] 05/31/2014 09:39:00 05/31/2014 23: 59:59 CLS Outpatient SAIRA MALHOTRA MD [id number] 04/08/2014 13:32:00 04/08/2014 23: 59:59 CLS Outpatient MALIA TAI MD [id number] 03/21/2014 12:02:00 03/21/2014 23: 59:59 CLS Outpatient MALIA TAI MD [id number] 03/16/2014 09:30:00 03/16/2014 23: 59:59 CLS Outpatient JAZZY TORRES DO [id number] 03/10/2014 08:53:00 03/10/2014 23: 59:59 CLS Outpatient MALIA TAI MD [id number] 03/08/2014 13:30:00 03/08/2014 23: 59:59 CLS Outpatient MALIA TAI MD [id number] 12/30/2013 08:48:00 12/30/2013 23: 59:59 CLS Outpatient MALIA TAI MD [id number] 10/28/2013 09:40:00 10/28/2013 23: 59:59 CLS Outpatient MALIA TAI MD [id number] 09/29/2013 09:08:00 09/29/2013 23: 59:59 CLS Outpatient MALIA TAI MD [id number] 06/01/2013 15:35:00 06/01/2013 23: 59:59 CLS Outpatient JAZZY TORRES DO [id number] 05/12/2013 10:32:00 Document Registration [id number] 05/11/2013 13:48:00 Document Registration [id number] 04/22/2013 09:58:00 Document Registration
--- OUTSIDE RECORDS SUMMARY | 2016-12-01 12:35 | XMS REPORT | Continuity of Care Document ---
Author Author [facility] Address Unknown Phone Unavailable Allergies Active Description Code Type Severity Reaction Onset Reported/Identified Relationship to Patient Clinical Status Yes Adhesive Bandage [id number] Drug Allergy Unknown N/A 11/30/2014 Yes nickel [id number] Drug Allergy Unknown HIVES 11/25/2016 Medications Problems [...] TORRES DO, JAZZY K 272.4 HYPERLIPIDEMIA 04/22/2013 TORRES DO, JAZZY K 401.1 HYPERTENSION, BENIGN ESSENTIAL [...] 356.9 01/17/2015 Ot V72.84 01/17/2015 BAY RAMEY SHE[employer] FOREMAN Ot 789.00 01/17/2015 BAY RAMEY SHEET METAL SH[employer] FOREMAN Ot 789.00 01/17/2015 BAY RAMEY SHEET [employer]AL SH[employer] FOREMAN Ot 789.00 01/27/2015 BAY RAMEY SHE[employer] FOREMAN Ot 789.00 12/28/2015 BAY RAMEY [employer]EMAN Ot Z12.31 ENCNTR SCREEN MAMMOGRAM FOR MALIGNANT NE 11/25/2016 Ot 722.4 CERVICAL DISC DEGEN 11/25/2016 Ot 719.41 JOINT PAIN-SHLDER 11/25/2016 Ot 722.0 CERVICAL DISC DISPLACMNT 11/25/2016 Ot 840.4 SPRAIN ROTATOR CUFF 11/25/2016 Ot E000.8 OTHER EXTERNAL CAUSE STATUS 11/25/2016 Ot E849.0 ACCIDENT IN HOME 11/25/2016 Ot E888.9 FALL NOS 11/25/2016 Ot V72.63 PRE-PROCEDURAL LABORATORY EXAMINATION 11/25/2016 Ot V72.81 [id number] CARDIOVASCULAR 11/25/2016 Ot V74.8 SCREEN-BACTERIAL DIS NEC [...] Procedures Code Description [place] [address] PAP SMEAR 2011 77674 MAMMOGRAM, SCREENING 05/01/2012 16933 MAMMOGRAM DX, LEFT 12/25/2012 50860 BONE MINERAL DENSITY, HEEL US (IN HOUSE) 04/22/2013 56733 DEXA BONE DENSITY, AXIAL 04/22/2013 23492 INJ TENDON SHEATH/LIGAMENT 05/11/2013 78579 MAMMOGRAM, SCREENING 05/11/2013 98463 ROUTINE VENIPUNCTURE 05/12/2013 11817 A1C (IN-HOUSE) 69282 CMP 05/12/2013 81897 LIPID PANEL 05/12 5542530 GFR CALC (RESULT ONLY) 05/12/2013 24422 TSH 05/12/2013 G0008 FLU ADMINISTRATION (MEDICARE ONLY) 06/01/2013 49392 A1C (IN-HOUSE) 10277 BARIUM SWALLOW XRAY MODIFIED 12/30/2013 22116 US THYROID ULTRASOUND 12/30/2013 83163 TSH 03/08/2014 69464 CBC 03/08/2014 02775 ROUTINE VENIPUNCTURE 03/10/2014 90622 CBC 03/10/2014 86134 T4 FREE 2013 47816 T3 TOTAL 2013 23646 ROUTINE VENIPUNCTURE 03/16/2014 35005 IRON SERUM 2013 66814 IRON BNDNG CAP 86666 T4 FREE 2013 31200 TSH 03/16/2014 95558 FERRITIN 2013 [id number] IMMATURE PLATELET FRACTION (RESULT ONLY) 03/16/2014 9482810 COMPLETE BLOOD COUNT NO DIFF (CBC Result) 03/16/2014 48991 DIFFERENTIAL WBC COUNT (CBC DIFF RESULT) 03/16/2014 19927 RETICULOCYTE COUNT 03/16/2014 21695 PERIPHERAL BLOOD SMEAR W/ PATH REPORT 03/17/2014 IRGROUP IRON GROUP (Iron,TIBC, Ferritin) 03/17/2014 03248 PERIPHERIAL BLOOD SMEAR 03/17/2014 [id number] HEMATOLOGY OTHER REPORT 03/17/2014 85217 HEMOCCULT 2013 60092 HEMOCCULT 2013 Results Test Result Range RED CELLS LEUKO REDUCED AS1 - 11/25/16 13:14 RED CELLS LEUKO REDUCED AS1 TRANSFUSED 1409 NRG Blood type T Indirect antibody screen panel - 11/25/16 13:14 ABO+Rh group AP NRG Transfusion band number [id number] NR Blood group antibody screen NEGATIVE NRG [...] Status Pt. Type Provider Facility Loc./Unit Complaint [id number] 05/31/2014 09:39:00 05/31/2014 23: 59:59 CLS Outpatient SAIRA MALHOTRA MD [id number] 04/08/2014 13:32:00 04/08/2014 23: 59:59 CLS Outpatient MALIA TAI MD [id number] 03/21/2014 12:02:00 03/21/2014 23: 59:59 CLS Outpatient MALIA TAI MD [id number] 03/16/2014 09:30:00 03/16/2014 23: 59:59 CLS Outpatient JAZZY TORRES DO [id number] 03/10/2014 08:53:00 03/10/2014 23: 59:59 CLS Outpatient MALIA TAI MD [id number] 03/08/2014 13:30:00 03/08/2014 23: 59:59 CLS Outpatient MALIA TAI MD [id number] 12/30/2013 08:48:00 12/30/2013 23: 59:59 CLS Outpatient MALIA TAI MD [id number] 10/28/2013 09:40:00 10/28/2013 23: 59:59 CLS Outpatient MALIA TAI MD [id number] 09/29/2013 09:08:00 09/29/2013 23: 59:59 CLS Outpatient MALIA TAI MD [id number] 06/01/2013 15:35:00 06/01/2013 23: 59:59 CLS Outpatient JAZZY TORRES DO [id number] 05/12/2013 10:32:00 Document Registration [id number] 05/11/2013 13:48:00 Document Registration [id number] 04/22/2013 09:58:00 Document Registration
== END 2016-11-28 13:25 | disposition home or self-care (01) | DRG 989 ==
LOC: DELPENDDIS → 4TH 06:29 → SDC 06:29 → EDSTATUS 08:00 → SDC 13:25
PROVIDERS: ADMIT Surgery Pediatric Surgery; ATTEND Surgery Pediatric Surgery
PROC: 0DP64CZ Removal of Extraluminal Device from Stomach, Percutaneous Endoscopic Approach (ICD-10-PCS; principal; 2016-11-28 08:32)
DX: K95.09 Other complications of gastric band procedure (principal); K21.9 Gastro-esophageal reflux disease without esophagitis; K27.9 Peptic ulcer, site unspecified, unspecified as acute or chronic, without hemorrhage or perforation; D64.9 Anemia, unspecified; I10 Essential (primary) hypertension; E11.9 Type 2 diabetes mellitus without complications; G47.33 Obstructive sleep apnea (adult) (pediatric)
CPT/HCPCS: 36415; 36430; 82962; 85014; 85018; 85025; 86901; 94664

== ENCOUNTER → 2016-12-09 | Outpatient (CLI) | payer MEDICARE, OTHER ==
[~2016-12-09] MED LIST changes: +ACET-2469 PO; +HYDR-3730 PO
--- NOTE | 2016-12-10 19:06 | Diagnostic Imaging Report ---
EXAMINATION: Digital Mammogram bilateral screening. INDICATION: Screening. COMPARISON: This study was compared to the prior exams of 12/06/2015, 05/14/2013, and 05/01/2012. At this time, there are no current complaints. The current study was also evaluated with a Computer Aided Detection (CAD) system. FINDINGS: There are scattered fibroglandular densities in both breasts which could obscure a lesion. Overall, there does not appear to have been any significant change when compared to the prior exam. No primary or secondary sign of malignancy is noted. IMPRESSION: There is no radiographic evidence for malignancy. ACR BI-RADS Category 1 NEGATIVE. Result letter will be mailed to the patient. Note: At least 10% of breast cancer is not imaged by mammography. Dictated by: Dictated on workstation # [id number]
== END ==
LOC: RAD 09:11
PROVIDERS: ATTEND Family Medicine
DX: Z12.31 Encounter for screening mammogram for malignant neoplasm of breast (principal)
CPT/HCPCS: 77067

== ENCOUNTER → 2016-12-12 | Outpatient (CLI) | payer MEDICARE, OTHER ==
[~2016-12-12] MED LIST changes: +CATHETER FLUSH 10 ML SYR IV PRN; +IOHEXOL 350 MG/ML 100 ML (OMNIPAQUE 350) VIAL IV ONE; +NS 100 ML (IVPB) BAG IV ONE
[2016-12-12 13:05] LABS: BASOPHILS # (AUTO) 0.1 10^3/uL (0.0-0.1); BASOPHILS % (AUTO) 1 % (0-10); EOSINOPHILS # (AUTO) 0.4 10^3/uL (0.0-0.3); EOSINOPHILS % (AUTO) 7 % (0-10); LYMPHOCYTES # (AUTO) 1.5 X 10^3 (1.0-4.0); LYMPHOCYTES % (AUTO) 28 % (12-44); MEAN CORPUSCULAR HEMOGLOBIN 21 PG (25-34); MEAN CORPUSCULAR HGB CONC 30 G/DL (32-36); MEAN CORPUSCULAR VOLUME 72 FL (80-99); MEAN PLATELET VOLUME 10.3 FL (7.4-10.4); MONOCYTES # (AUTO) 0.5 X 10^3 (0.0-1.0); MONOCYTES % (AUTO) 9 % (0-12); NEUTROPHILS # (AUTO) 2.9 X 10^3 (1.8-7.8); NEUTROPHILS % (AUTO) 54 % (42-75); PLATELET COUNT 317 10^3/uL (130-400); RED BLOOD COUNT 4.67 10^6/uL (4.35-5.85); WHITE BLOOD COUNT 5.4 10^3/uL (4.3-11.0)
[2016-12-12 13:26] LABS: ALBUMIN 4.1 G/DL (3.2-4.5); BILIRUBIN,TOTAL 0.7 MG/DL (0.1-1.0); CALCIUM 9.4 MG/DL (8.5-10.1); CREATININE SERUM 1.03 MG/DL (0.60-1.30)
[2016-12-12 13:38] LABS: POTASSIUM 4.3 MMOL/L (3.6-5.0)
--- NOTE | 2016-12-12 14:44 | Diagnostic Imaging Report ---
PROCEDURE: CT abdomen and pelvis with and without contrast. TECHNIQUE: Precontrast acquisitions were acquired through the abdomen and pelvis. Multiple contiguous axial images were obtained through the abdomen and pelvis after the administration of intravenous contrast. INDICATION: T81.4xxa. INDICATION: Abdominal pain. 100 mL of Omnipaque 350 is administered intravenously. FINDINGS: The lung bases demonstrate no significant abnormality. The liver demonstrates mild diffuse hepatic steatosis. The gallbladder, the spleen, the adrenal glands, and the pancreas appear unremarkable. The kidneys have symmetric enhancement and contrast excretion. There is a lesion in the lower pole of the left kidney measuring 2.5 cm compatible with a simple cyst. The abdominal aorta is normal in caliber. No para-aortic significantly enlarged lymph node seen. There is a fluid collection measuring 6.5 x 4.3 x 4.2 cm seen in the anterior abdominal wall subcutaneous tissues. There is a small fat-containing umbilical hernia. There is diastasis of the recti. The pelvis demonstrate surgical clips in the right adnexa. The urinary bladder appears unremarkable. Unenhanced phase of the exam demonstrates no urinary tract stones. No significant free fluid or fluid collection in the abdomen or pelvis seen. Changes of hysterectomy noted. Bone structures demonstrate prominent disc degenerative changes at L5-S1 level. IMPRESSION: 1. A 6.5-cm fluid collection in the subcutaneous tissues of the anterior abdominal wall. This could relate to a seroma. Correlate clinically. 2. Tiny fat-containing umbilical hernia. Dictated by: Dictated on workstation # [id number]
== END ==
LOC: RAD 12:28
PROVIDERS: ATTEND Family Medicine
DX: T81.4XXA Infection following a procedure, initial encounter (principal)
CPT/HCPCS: 36415; 74178; 80053; 85025

== ENCOUNTER → 2017-02-06 | Outpatient (CLI) | payer MEDICARE, OTHER ==
[~2017-02-06] VITALS: Ht 162.6 cm; Wt 107.0 kg
[~2017-02-06] MED LIST changes: +ACETAMINOPHEN 325 MG TABLET/CAPLET (TYLENOL) PO NR; -CATHETER FLUSH 10 ML SYR IV PRN; -IOHEXOL 350 MG/ML 100 ML (OMNIPAQUE 350) VIAL IV ONE; +IRON SUCROSE 250 MG/NS 100 ML IVPB IV NR; -NS 100 ML (IVPB) BAG IV ONE; +diphenhydrAMINE 50 MG/ML INJ (BENADRYL) IV NR
[2017-02-06 13:40] VITALS: BP 174/84
[2017-02-06 14:21] VITALS: BP 174/84
== END ==
LOC: SDC 13:01
PROVIDERS: ATTEND Family Medicine
DX: D50.9 Iron deficiency anemia, unspecified (principal)

== ENCOUNTER 2017-06-23 14:22 | Outpatient (CLI) | payer MEDICARE, OTHER ==
[~2017-06-23] VITALS: Ht 162.6 cm; Wt 104.0 kg
[~2017-06-23 14:22] MED LIST changes: -ACETAMINOPHEN 325 MG TABLET/CAPLET (TYLENOL) PO NR; -IRON SUCROSE 250 MG/NS 100 ML IVPB IV NR; -diphenhydrAMINE 50 MG/ML INJ (BENADRYL) IV NR
[2017-06-23] MEDS ORDERED: LEVO100T7 PO (14:37)
[2017-06-23] MEDS ORDERED: ATOR40TA70 PO (14:37)
[2017-06-23] MEDS ORDERED: CETI10TA17 PO (14:37)
[2017-06-23] MEDS ORDERED: HYDR25TA4 PO (14:37)
[2017-06-23 14:48] VITALS: BP 141/78
[2017-06-23 15:23] LABS: BASOPHILS % (AUTO) 0 % (0-10); EOSINOPHILS # (AUTO) 0.1 10^3/uL (0.0-0.3); EOSINOPHILS % (AUTO) 1 % (0-10); LYMPHOCYTES # (AUTO) 1.8 X 10^3 (1.0-4.0); LYMPHOCYTES % (AUTO) 29 % (12-44); MEAN CORPUSCULAR HEMOGLOBIN 21 PG (25-34); MEAN CORPUSCULAR HGB CONC 30 G/DL (32-36); MEAN CORPUSCULAR VOLUME 70 FL (80-99); MEAN PLATELET VOLUME 10.5 FL (7.4-10.4); MONOCYTES # (AUTO) 0.5 X 10^3 (0.0-1.0); MONOCYTES % (AUTO) 8 % (0-12); NEUTROPHILS # (AUTO) 3.8 X 10^3 (1.8-7.8); NEUTROPHILS % (AUTO) 61 % (42-75); PLATELET COUNT 289 10^3/uL (130-400); RED BLOOD COUNT 4.85 10^6/uL (4.35-5.85); RED CELL DISTRIBUTION WIDTH 18.9 % (10.0-14.5); WHITE BLOOD COUNT 6.2 10^3/uL (4.3-11.0)
== END 2017-06-23 15:00 ==
LOC: PREOP 14:22
PROVIDERS: ATTEND Surgery
DX: Z01.812 Encounter for preprocedural laboratory examination (principal); E66.01 Morbid (severe) obesity due to excess calories
CPT/HCPCS: 36415; 85025; 87081

== ENCOUNTER 2017-06-26 09:00 | Inpatient (IN) | payer MEDICARE, OTHER ==
[~2017-06-26] VITALS: Ht 162.6 cm; Wt 104.0 kg
[~2017-06-26 09:00] MED LIST changes: +ATOR40TA70 PO; +CETI10TA17 PO; +LEVO100T7 PO; +NS (IVPB) 50 ML ONE; +ceFAZolin 1,000 MG (ANCEF) VIAL ONE
[2017-06-26] MEDS ORDERED: BUP/EPI 0.5% 1:200,000 (MARCAINE) 10ML VIAL IJ ONE (09:35)
[2017-06-26 09:43] VITALS: BP 179/85
[2017-06-26] MEDS ORDERED: ceFAZolin 1 GM/NS 50 ML IVPB IV ONE ×2 (09:45)
[2017-06-26] MEDS: LACTATED RINGERS 1,000 ML IV PRN ×3 (09:48→14:05)
[2017-06-26] MEDS ORDERED: LACTATED RINGERS 1,000 ML IV SCH (09:52)
--- NOTE | 2017-06-26 09:52 | Progress Note-Pre Operative ---
Pre-Operative Progress Note H&P Reviewed The H&P was reviewed, patient examined and no changes noted. Date Seen by Provider: Jun 26, 2017 Time Seen by Provider: 09:00 Date H&P Reviewed: Jun 26, 2017 Time H&P Reviewed: 09:00 Pre-Operative Diagnosis: morbid obesity, diabetes BOBBY YOUNGER MD Jun 26, 2017 9:52 am
[2017-06-26] MEDS ORDERED: SEVOFLURANE (ULTANE) 15 ML INHAL SOLN ONE ×7 (09:53→12:21)
[2017-06-26] MEDS ORDERED: fentaNYL INJECTION 100 MCG/2 ML AMP ONE ×2 (09:53→11:50)
[2017-06-26] MEDS ORDERED: ONDANSETRON 4 MG/2 ML (SDV) Z0FRAN ONE (09:53)
[2017-06-26] MEDS ORDERED: LIDOCAINE PF 2% 5 ML (XYLOCAINE) VIAL ONE (09:53)
[2017-06-26] MEDS ORDERED: proPOfol 200 MG/20 ML (DIPRIVAN) VIAL IV ONE (09:53)
[2017-06-26] MEDS ORDERED: ROCURONIUM 50 MG/5 ML (ZEMURON) VIAL IV ONE (09:53)
[2017-06-26] MEDS ORDERED: MIDAZOLAM 2 MG/2 ML (VERSED) VIAL ONE ×2 (09:54→13:59)
[2017-06-26] MEDS ORDERED: METOCLOPRAMIDE INJ 10 MG/2 ML (REGLAN) IV PRN (10:00)
[2017-06-26] MEDS ORDERED: NALOXONE 0.4 MG/ML 1 ML (NARCAN) VIAL IV PRN (10:00)
[2017-06-26] MEDS ORDERED: diphenhydrAMINE 50 MG/ML INJ (BENADRYL) IVP PRN (10:00)
[2017-06-26] MEDS ORDERED: oxyCODONE 20 MG/1 ML ORAL CONC (RoxiCODONE) CHARGE PER 1 ML PO PRN (10:00)
[2017-06-26] MEDS ORDERED: ONDANSETRON 4 MG/2 ML (SDV) Z0FRAN IV PRN (10:00)
[2017-06-26] MEDS ORDERED: diphenhydrAMINE 50 MG/ML INJ (BENADRYL) IV PRN (10:00)
[2017-06-26] MEDS ORDERED: OXYC-473 PO (10:09)
[2017-06-26] MEDS ORDERED: ONDN4T PO (10:09)
--- NOTE | 2017-06-26 10:11 | Discharge Inst-Surgical ---
D/C Lap Instructions-CARISA New, Converted, or Re-Newed RX: RX on Chart Follow Up Appt in 2 weeks Activity as tolerated No driving for 24 hours No driving while on pain medications Incentive Spirometry use every 2 hours while awake phase 1 clear liquid diet 2 weeks. Symptoms to Report: Fever over 101 degree F, Nausea/Vomiting Infection Signs and Symptoms to report: Increased redness, Foul odor of wound, Increased drainage Bathing instructions: May shower Operative Area Clean/Dry; Keep incision clean/dry If any problems/questions: Contact your physician or go to Emergency Room BOBBY YOUNGER MD Jun 26, 2017 10:11 am
[2017-06-26] MEDS ORDERED: ceFAZolin 1,000 MG (ANCEF) VIAL ONE (10:44)
[2017-06-26] MEDS ORDERED: NEOSTIGMINE (BLOXIVERZ ) 1 MG/1ML 10 ML VIAL ONE (12:04)
[2017-06-26] MEDS ORDERED: GLYCOPYRROLATE 0.2 MG/ML (ROBINUL) 2 ML VIAL ONE (12:04)
--- NOTE | 2017-06-26 12:44 | Progress Note-Post Operative ---
Post-Operative Progess Note Surgeon (s)/Underwriting Clerks Supervisor (s) Surgeon BOBBY YOUNGER MD Underwriting Clerks Supervisor: adalgisa martinez TOOL REPAIR TECHNICIAN Pre-Operative Diagnosis morbid obesity, diabetes Post-Operative Diagnosis same Procedure & Operative Findings Date of Procedure 06/26/17 Procedure Performed/Findings laparoscopic gastric sleeve resection Anesthesia Type GET Estimated Blood Loss Estimated blood loss (mL): minimal Specimens/Packing Specimens Removed stomach BOBBY YOUNGER MD Jun 26, 2017 12:44 pm
[2017-06-26] MEDS ORDERED: morphine INJ 10 MG/ML 1ML (SYR OR VIAL) ONE (12:52)
[2017-06-26] MEDS: morphine INJ 10 MG/ML 1ML (SYR OR VIAL) IVP PRN ×2 (13:12→13:19)
[2017-06-26] MEDS: MEPERIDINE (DEMEROL) INJ 50 MG/ML IVP PRN ×2 (13:20→13:30)
--- NOTE | 2017-06-26 13:29 | Diagnostic Imaging Report ---
Upright portable radiograph of the chest. INDICATION: Shortness of breath. FINDINGS: There is a 40% pneumothorax in the left lung. The right lung is clear. The heart size is the upper limits of normal. No right pleural effusion is evident. Minimal left basilar atelectasis and tiny left effusion is suggested. IMPRESSION: There is a 40% left pneumothorax. The findings were called to Dr. Neumann at the time of dictation Dictated by: Dictated on workstation # [id number]
[2017-06-26] MEDS: ONDANSETRON 4 MG/2 ML (SDV) Z0FRAN IVP PRN ×2 (13:30→16:17)
[2017-06-26] MEDS ORDERED: HYDROmorphone (DILAUDID) 2 MG/ML VIAL ONE (13:47)
[2017-06-26] MEDS ORDERED: LACTATED RINGERS 1,000 ML IV ONE (13:50)
[2017-06-26] MEDS: HYDROmorphone (DILAUDID) 2 MG/ML VIAL IVP PRN ×4 (13:55→16:17)
[2017-06-26] MEDS ORDERED: MIDAZOLAM 2 MG/2 ML (VERSED) VIAL IV ONE (14:30)
--- NOTE | 2017-06-26 14:43 | Diagnostic Imaging Report ---
EXAMINATION: Portable upright radiograph of the chest. INDICATION: Left pneumothorax. FINDINGS: A small bore left chest tube is placed and is seen at the lateral aspect of the mid to lower left lung zone. There is expansion of the left lung with very minimal remaining left apical pneumothorax. The right lung is clear. The heart size is borderline. No effusion or pneumothorax. IMPRESSION: Small bore left chest tube is placed with a remaining tiny left apical pneumothorax. Dictated by: Dictated on workstation # [id number]
[2017-06-26 14:51] VITALS: BP 177/79
[2017-06-26] MEDS ORDERED: CATHETER FLUSH 10 ML SYR IV PRN (15:15)
[2017-06-26 15:30] VITALS: BP 160/77
[2017-06-26] MEDS: fentaNYL PCA 300 MCG/30 ML VIAL IV PRN (15:31)
[2017-06-26] MEDS: NS IV 1000 ML 1,000 ML IV SCH (15:45)
--- NOTE | 2017-06-26 15:59 | Progress Note-Post Operative ---
Post-Operative Progess Note Surgeon (s)/Complex Care Nurse Practitioner (s) Surgeon BOBBY YOUNGER MD Complex Care Nurse Practitioner: none Pre-Operative Diagnosis left pneumothorax Post-Operative Diagnosis same Procedure & Operative Findings Date of Procedure 06/26/17 Procedure Performed/Findings placement left chest tube Anesthesia Type local Estimated Blood Loss Estimated blood loss (mL): minimal Specimens/Packing Specimens Removed none BOBBY YOUNGER MD Jun 26, 2017 15:59
[2017-06-26] MEDS: metroNIDAZOLE 500MG/100ML IVPB 100 ML IV SCH ×2 (17:54→23:26)
[2017-06-26] MEDS: ceFAZolin 2 GM/50 ML NS 50 ML IV SCH ×2 (18:50→22:11)
[2017-06-26 19:40] VITALS: BP 136/63
[2017-06-26] MEDS: RT-ALBUTEROL SULF 2.5 MG/3 ML PRE-MIX VIAL INH SCH ×2 (19:43→22:52)
[2017-06-26] MEDS: ENOXAPARIN 30 MG/0.3 ML (LOVENOX) SYR SC SCH (20:12)
[2017-06-26] MEDS: meTOprolol 5 MG/5 ML (LOPRESSOR) VIAL IVP SCH ×2 (20:12→23:24)
--- NOTE | 2017-06-26 23:17 | OPERATIVE REPORT ---
DATE OF SERVICE: 06/26/2017 ATTENDING PRIMARY CARE PHYSICIAN: Dr. Gloria Gorman. PREOPERATIVE DIAGNOSES: Morbid obesity, hypertension, hypercholesterolemia, diabetes, obstructive sleep apnea. POSTOPERATIVE DIAGNOSES: Morbid obesity, hypertension, hypercholesterolemia, diabetes, obstructive sleep apnea. PROCEDURE: Laparoscopic gastric sleeve resection. SURGEON: Bobby Younger MD. ANESTHESIA: General endotracheal. ESTIMATED BLOOD LOSS: Minimal. FINDINGS: Tssy-zn-lxdqwfef scar tissue from previous laparoscopic adjustable gastric band placement. No hiatal hernia was identified. DISPOSITION: The patient tolerated the procedure well. INDICATIONS FOR PROCEDURE: The patient is a 67-year-old female known to us. She is interested in the laparoscopic gastric sleeve resection and meets the medical criteria for bariatric surgery. She did have a laparoscopic adjustable gastric band placed March 2006 in [place]. She had seen us for followups due to proximity and adjustments; however, she did have continued issues with reflux and regurgitation despite having fluid removed from the band. Medical management was tried as well as Nexium, Protonix and Carafate, but she was continued to be symptomatic. She did have an anterior slippage identified and the band removed in November 2016. She did gain the majority of her adult weight around 2004 after a job change. She has tried a number of diet and exercise attempts as well as medications with no success. She has tried diet programs including high-protein diet, low-calorie/low-carbohydrate diets with no success. She has tried exercise regimens including aerobic exercise classes, aquatic exercise classes, weight training classes, stationary bike, treadmill, with again no success. She has tried numerous medications including fenfluramine as well as phentermine and did have some success; however, regained the weight back as well as more over time. Her medical comorbidities related to her obesity include hypertension, hypercholesterolemia, diabetes, degenerative joint disease, peripheral neuropathy, obstructive sleep apnea, gastroesophageal reflux disease. DESCRIPTION OF PROCEDURE: The patient was brought to the operating room, laid supine on the table. After adequate IV pain and sedative medications and general endotracheal intubation, the abdomen was prepped and draped in a standard surgical fashion. A 0.5% Marcaine with epinephrine was then used to anesthetize the overlying skin in the left upper abdominal quadrant and a small transverse skin incision made using a 15 blade. A 0 silk suture was applied to the medial aspect of the incision for retraction and a Veress needle inserted with a low opening pressure of 0 mmHg. The abdomen was insufflated to 15 mmHg pressure. The Veress needle removed and a 5 mm Xcel trocar placed followed by a 5 mm 45-degree angle laparoscope visualizing the peritoneal cavity. A 4-quadrant abdominal exploration was performed. There was qdok-hc-gabqfxzs adhesion tissue from previous laparoscopic gastric sleeve resection. This was more focused towards the angle of His and the upper stomach. The gallbladder was identified and appeared to be normal. There was mild liver steatosis. Under direct visualization, we then placed a midabdominal left of midline 10 mm port after the skin and peritoneum were anesthetized using 0.5% Marcaine with epinephrine and a transverse skin incision made using a 15 blade. In a similar manner, a midabdominal right of midline 15 mm port was placed followed by a right upper abdominal quadrant 5 mm port. An area in the epigastric region was then anesthetized and a small transverse skin incision made using an 11 blade. A tract was then created through the abdominal wall layers using a trocar to a 5 mm port and through this opening, a medium-sized Yue liver retractor was placed and the left lobe of the liver retracted anteriorly and superiorly. The patient was then placed in steep reverse Trendelenburg position. We then measured the distance from the pylorus along the greater curvature approximately 6 cm and marked this with a marking pen. In this region, we then opened the gastrocolic ligament next to the stomach entering the lesser sac. We then proceeded with inferior dissection until we were approximately 2 mm below our marking using the Sonicision with visualization of good hemostasis. We then proceeded superiorly, taking down the short gastric vessels using the Sonicision. The entire angle of His connective tissue fibers as well as the previous scar tissue from her previous surgery were then taken down gently using Sonicision with visualization of good hemostasis. There was no hiatal hernia identified. A 42-Hungarian bougie was then placed under direct visualization and the tip directed into the pylorus. We then proceeded with our gastric sleeve resection starting approximately 2 cm below our marking with a 45 mm GEE polyglycolic acid black load stapler. We then proceeded using the bougie as our guide proximally, completing our gastric sleeve resection with 60 mm black reloads. Good hemostasis was observed. The corners were then bolstered with 5 mm clips. Tisseel fibrin glue was then placed onto the staple line and the omentum placed over the staple line. The liver retractor was then removed and the stomach was removed through the 15 mm port site. The fascia and peritoneum to the 15 and 10 mm port sites were then closed under direct visualization using a Jb-Ju device and 0 Vicryl suture. The abdomen was desufflated and the remaining ports were removed. All skin incisions were closed using 4-0 Monocryl running subcuticular sutures. Wounds were then cleaned and covered with Dermabond. The patient tolerated the procedure well. We will start pain control with fentanyl NURSES ASSISTANT as well as DVT prophylaxis with early ambulation, calf SCDs as well as Lovenox injections. Tomorrow morning, we will start the patient on clear liquid diet. Once she is tolerating approximately 60 mL of clear liquids every half hour, has good pain control with oral pain medication and is ambulating well, we will discharge her home. Job ID: [id number] DocumentID: [id number] Dictated Date: 06/26/2017 13:05:04 French Weaver Date: 06/26/2017 19:17:21 Dictated By: BOBBY YOUNGER MD
--- NOTE | 2017-06-26 23:24 | OPERATIVE REPORT ---
DATE OF SERVICE: 06/26/2017 ATTENDING PHYSICIAN: Dr. Gorman. PREOPERATIVE DIAGNOSIS: Left pneumothorax. POSTOPERATIVE DIAGNOSIS: Left pneumothorax. PROCEDURE: Placement of left chest tube. SURGEON: Dr. Younger. ANESTHESIA: Local. ESTIMATED BLOOD LOSS: Minimal. FINDINGS: A 40% pneumothorax post procedure most likely secondary to extensive dissection from her previous bariatric surgery and the left subphrenic space. DISPOSITION: The patient tolerated the procedure well. The patient is a 67-year-old female with multiple medical comorbidities. She has hypertension, hypercholesterolemia, sleep apnea as well as diabetes. She underwent a previous laparoscopic bariatric surgical procedure including the laparoscopic gastric band in 2005; however, was unsuccessful with band slippage and have the band removed. She continues to be obese and have met the criteria for bariatric surgery. She underwent a laparoscopic gastric sleeve resection. There was extensive tissue in the left subphrenic space from her previous surgery. Due to this dissection most likely she had developed a left chest discomfort after extubation in the recovery. A chest x-ray was performed, which did show a left pneumothorax approximately 40% in size. Left chest was prepped and draped in standard surgical fashion. A 1% lidocaine was used to anesthetize the skin, subcutaneous tissue, muscle layers as well as the parietal pleura. Small transverse skin incision made using a 11 blade. A small pigtail catheter was then inserted into the pleural space over the trocar without any resistance. The catheter was then placed onto tubing as well and a Pleur-evac. Air was evacuated under suction and no air leak identified. This was then fixed to the skin using large Op-Site as well as foam tape. The patient tolerated the procedure well. A post-procedure chest x-ray was performed which showed only a very small residual pneumothorax. We will get a chest x-ray in the morning and if there is no pneumothorax remove the chest tube. Job ID: [id number] DocumentID: [id number] Dictated Date: 06/26/2017 16:03:44 Container Crane Operator Date: 06/26/2017 23:23:20 Dictated By: BOBBY YOUNGER MD [facility]
[2017-06-26] MEDS: METOCLOPRAMIDE INJ 10 MG/2 ML (REGLAN) IVP SCH (23:25)
[2017-06-26] MEDS: ONDANSETRON 4 MG/2 ML (SDV) Z0FRAN IVP SCH (23:26)
[2017-06-27 00:40] VITALS: BP 155/78
[2017-06-27] MEDS: RT-ALBUTEROL SULF 2.5 MG/3 ML PRE-MIX VIAL INH SCH ×5 (02:30→18:37)
[2017-06-27 04:00] VITALS: BP 139/75
[2017-06-27] MEDS: meTOprolol 5 MG/5 ML (LOPRESSOR) VIAL IVP SCH ×4 (04:19→17:46)
[2017-06-27] MEDS: NS IV 1000 ML 1,000 ML IV SCH ×3 (04:19→14:53)
[2017-06-27] MEDS: ceFAZolin 2 GM/50 ML NS 50 ML IV SCH (05:36)
[2017-06-27] MEDS: METOCLOPRAMIDE INJ 10 MG/2 ML (REGLAN) IVP SCH (05:36)
[2017-06-27] MEDS: ONDANSETRON 4 MG/2 ML (SDV) Z0FRAN IVP SCH (05:36)
[2017-06-27 06:21] LABS: MEAN PLATELET VOLUME 10.1 FL (7.4-10.4); RED BLOOD COUNT 4.2 10^6/uL (4.35-5.85); RED CELL DISTRIBUTION WIDTH 18.7 % (10.0-14.5); WHITE BLOOD COUNT 7.2 10^3/uL (4.3-11.0)
[2017-06-27] MEDS: fentaNYL PCA 300 MCG/30 ML VIAL IV PRN (06:22)
[2017-06-27] MEDS: metroNIDAZOLE 500MG/100ML IVPB 100 ML IV SCH (06:23)
[2017-06-27 06:32] LABS: CALCIUM 8.4 MG/DL (8.5-10.1); CREATININE SERUM 0.97 MG/DL (0.60-1.30); POTASSIUM 2.7 MMOL/L (3.6-5.0)
--- NOTE | 2017-06-27 07:35 | Diagnostic Imaging Report ---
INDICATION: Left pneumothorax. EXAM: Portable chest at 5:02 AM COMPARISON STUDY: Previous day. FINDINGS: There is no pneumothorax on today's exam. The heart size and pulmonary vascularity are normal. The lungs are clear. IMPRESSION: Interval resolution of the left pneumothorax. Dictated by: Dictated on workstation # [id number]
[2017-06-27 08:00] VITALS: BP 149/75
[2017-06-27] MEDS: ENOXAPARIN 30 MG/0.3 ML (LOVENOX) SYR SC SCH (08:39)
[2017-06-27] MEDS ORDERED: PANTOPRAZOLE 40 MG/10 ML (PROTONIX) VIAL IV SCH (09:00)
[2017-06-27] MEDS ORDERED: SENNA W/DOCUSATE (SENOKOT S) TABLET PO SCH (09:00)
--- NOTE | 2017-06-27 09:11 | Anesthesia-General Post-Op ---
General Patient Condition Mental Status/LOC: Same as Preop Cardiovascular: Satisfactory Nausea/Vomiting: Absent Respiratory: Satisfactory Pain: Controlled Complications: Absent Post Op Complications Complications None Follow Up Care/Instructions Patient Instructions None needed. Anesthesia/Patient Condition Patient Condition Patient is doing well, no complaints, stable vital signs, no apparent adverse anesthesia problems. No complications reported per nursing. MARY DIAZ CRNA Jun 27, 2017 09:10
[2017-06-27] MEDS ORDERED: METOCLOPRAMIDE INJ 10 MG/2 ML (REGLAN) IVP PRN (10:00)
[2017-06-27] MEDS ORDERED: ONDANSETRON 4 MG/2 ML (SDV) Z0FRAN IVP PRN (10:00)
--- NOTE | 2017-06-27 11:14 | Progress Note (SOAP) ---
Subjective Date Seen by Provider: Jun 27, 2017 Time Seen by Provider: 10:00 Subjective/Events-last exam doing well. no SOB, no nausea. pain controlled. CXR normal Objective Exam Vital Signs Date Time Temp Pulse Resp B/P (MAP) Pulse Ox O2 Delivery O2 Flow Rate FiO2 06/27/17 10:07 94 Room Air 06/27/17 09:00 94 Room Air 06/27/17 08:00 99.6 98 24 149/75 90 Room Air 06/27/17 06:38 92 Room Air 06/27/17 06:22 20 06/27/17 05:39 20 06/27/17 04:00 98.7 77 20 139/75 92 Room Air 06/27/17 02:30 91 Room Air 06/27/17 01:00 91 06/27/17 00:40 100.3 86 18 155/78 96 Room Air 06/26/17 22:53 92 Room Air 06/26/17 21:00 Room Air 06/26/17 20:17 78 06/26/17 19:40 97.8 89 18 136/63 96 Room Air 06/26/17 15:30 97.3 86 20 160/77 97 Room Air 06/26/17 14:51 97.1 85 18 177/79 100 Room Air Capillary Refill : General Appearance: No Apparent Distress HEENT: PERRL/EOMI, TMs Normal Neck: Full Range of Motion Respiratory: Chest Non Tender, Lungs Clear, Normal Breath Sounds Cardiovascular: Regular Rate, Rhythm Gastrointestinal: normal bowel sounds, soft Extremity: Normal Capillary Refill Neurologic/Psychiatric: Alert, Oriented x3 Skin: Normal Color Lymphatic: No Adenopathy Results Lab Laboratory Tests 06/26/17 16:22: Glucometer 174H 06/26/17 19:43: Glucometer 108 06/27/17 00:39: Glucometer 102 06/27/17 04:19: Glucometer 128H 06/27/17 06:03: White Blood Count 7.2, Red Blood Count 4.20L, Hemoglobin 8.7L, Hematocrit 30L, Mean Corpuscular Volume 71L, Mean Corpuscular Hemoglobin 21L, Mean Corpuscular Hemoglobin Concent 29L, Red Cell Distribution Width 18.7H, Platelet Count 229, Mean Platelet Volume 10.1, Sodium Level 139, Potassium Level 2.7L, Chloride Level 103, Carbon Dioxide Level 21, Anion Gap 15H, Blood Urea Nitrogen 9, Creatinine 0.97, Estimat Glomerular Filtration Rate 57, BUN/Creatinine Ratio 9, Glucose Level 136H, Calcium Level 8.4L 06/27/17 09:24: Glucometer 161H Assessment/Plan Assessment/Plan Assess & Plan/Chief Complaint s/p lap sleeve and CT. no PTX. will remove CT. ambulate. phase 1 clear liquids. home soon. Clinical Quality Measures DVT/VTE Risk/Contraindication: Risk Factor Score Per Nursin RFS Level Per Nursing on Admit: 4+=Very High BOBBY YOUNGER MD Jun 27, 2017 11:14 am
[2017-06-27] MEDS: POTASSIUM CL 10MEQ/50ML IVPB 50 ML IV SCH ×4 (11:33→14:55)
[2017-06-27 12:00] VITALS: BP 142/63
--- NOTE | 2017-06-27 16:14 | Diagnostic Imaging Report ---
INDICATION: Followup chest tube removal. COMPARISON: 06/27/2017 at 5 AM. FINDINGS: A left basilar effusion is present. No evidence of pneumothorax. The left upper lung is clear. The right lung is well-aerated and clear. IMPRESSION: Small left pleural effusion with no evidence of pneumothorax. Dictated by: Dictated on workstation # [id number]
[2017-06-27 16:59] VITALS: BP 136/77
[2017-06-27] MEDS ORDERED: ACET-789 PO (18:24)
[2017-06-27 19:00] VITALS: BP 136/77
== END 2017-06-27 19:00 | disposition home or self-care (01) | DRG 620 ==
LOC: 4TH 09:00 → SURG 09:01 → EDSTATUS 10:00 → SURGICAL 11:33 → SURG 11:33 → 4TH 14:48
PROVIDERS: ADMIT Surgery; ATTEND Surgery
PROC: 0W9B30Z Drainage of Left Pleural Cavity with Drainage Device, Percutaneous Approach (ICD-10-PCS; 2017-06-26)
PROC: 0DB64Z3 Excision of Stomach, Percutaneous Endoscopic Approach, Vertical (ICD-10-PCS; principal; 2017-06-26 10:21)
DX: E66.01 Morbid (severe) obesity due to excess calories (principal); J95.811 Postprocedural pneumothorax; I10 Essential (primary) hypertension; E78.00 Pure hypercholesterolemia, unspecified; E11.9 Type 2 diabetes mellitus without complications; M79.7 Fibromyalgia; M17.0 Bilateral primary osteoarthritis of knee; M16.0 Bilateral primary osteoarthritis of hip; G47.33 Obstructive sleep apnea (adult) (pediatric); K21.9 Gastro-esophageal reflux disease without esophagitis; K58.9 Irritable bowel syndrome, unspecified; Z68.41 Body mass index [BMI] 40.0-44.9, adult; Z85.850 Personal history of malignant neoplasm of thyroid
CPT/HCPCS: 36415; 71010; 80048; 82962; 85027; 94640; 94664; 94760

== ENCOUNTER 2017-09-15 12:53 | Outpatient (RCR) | payer MEDICARE, OTHER ==
[2017-08-29] MEDS: ACETAMINOPHEN 325 MG TABLET/CAPLET (TYLENOL) PO SCH (13:18)
[2017-08-29] MEDS: diphenhydrAMINE 50 MG/ML INJ (BENADRYL) IV SCH (13:21)
[2017-08-29 14:33] VITALS: BP 140/67
[2017-09-02] MEDS: ACETAMINOPHEN 325 MG TABLET/CAPLET (TYLENOL) PO SCH (13:01)
[2017-09-02] MEDS: diphenhydrAMINE 50 MG/ML INJ (BENADRYL) IV SCH (13:05)
[2017-09-02] MEDS: IRON SUCROSE 250 MG/NS 100 ML IVPB IV SCH ×2 (13:12)
[2017-09-02 13:15] VITALS: BP 141/69
[2017-09-02 13:47] VITALS: BP 141/69
[2017-09-05] MEDS: ACETAMINOPHEN 325 MG TABLET/CAPLET (TYLENOL) PO SCH (13:20)
[2017-09-05] MEDS: diphenhydrAMINE 50 MG/ML INJ (BENADRYL) IV SCH (13:29)
[2017-09-05] MEDS: IRON SUCROSE 250 MG/NS 100 ML IVPB IV SCH ×2 (13:30)
[2017-09-05 14:05] VITALS: BP 138/67
[2017-09-09] MEDS: IRON SUCROSE 250 MG/NS 100 ML IVPB IV SCH ×2 (13:33)
[2017-09-09 13:40] VITALS: BP 131/71
[2017-09-09 14:05] VITALS: BP 131/71
[2017-09-11] MEDS: IRON SUCROSE 250 MG/NS 100 ML IVPB IV SCH ×2 (13:29)
[2017-09-11 15:08] VITALS: BP 137/70
[~2017-09-15] VITALS: Ht 162.6 cm; Wt 104.0 kg
[2017-09-15 12:53] VITALS: BP 141/65
[~2017-09-15 12:53] MED LIST changes: +ACET-789 PO; +ACETAMINOPHEN 325 MG TABLET/CAPLET (TYLENOL) ONE; +IRON SUCROSE IV ONE; -NS (IVPB) 50 ML ONE; +ONDN4T PO; +OXYC-473 PO; +SODIUM CHLORIDE IV ONE; -ceFAZolin 1,000 MG (ANCEF) VIAL ONE; +diphenhydrAMINE 50 MG/ML INJ (BENADRYL) ONE
[2017-09-15] MEDS ORDERED: ACETAMINOPHEN 325 MG TABLET/CAPLET (TYLENOL) ONE (13:00)
[2017-09-15] MEDS ORDERED: diphenhydrAMINE 50 MG/ML INJ (BENADRYL) ONE (13:00)
[2017-09-15] MEDS: ACETAMINOPHEN 325 MG TABLET/CAPLET (TYLENOL) PO SCH (13:11)
[2017-09-15] MEDS: IRON SUCROSE 250 MG/NS 100 ML IVPB IV SCH ×2 (13:27)
== END 2017-11-27 | disposition home or self-care (01) ==
LOC: SDC 12:53
PROVIDERS: ATTEND Family Medicine
DX: D50.9 Iron deficiency anemia, unspecified (principal)
CPT/HCPCS: 96365; 96375

== ENCOUNTER 2017-11-17 13:00 | Outpatient (CLI) | payer MEDICARE, OTHER ==
[~2017-11-17 13:00] MED LIST changes: -ACETAMINOPHEN 325 MG TABLET/CAPLET (TYLENOL) ONE; -IRON SUCROSE IV ONE; -SODIUM CHLORIDE IV ONE; -diphenhydrAMINE 50 MG/ML INJ (BENADRYL) ONE
== END 2017-11-17 13:30 | disposition home or self-care (01) ==
LOC: SLEEP 13:00
PROVIDERS: ATTEND Nurse Practitioner Family
DX: G47.10 Hypersomnia, unspecified (principal); R06.83 Snoring

== ENCOUNTER → 2017-12-17 | Outpatient (CLI) | payer MEDICARE, OTHER ==
--- NOTE | 2017-12-17 17:43 | Diagnostic Imaging Report ---
INDICATION: Routine screening. Comparison is made with prior exams from 12/09/2016 and 12/06/2015. The current study was also evaluated with a Computer Aided Detection (CAD) system. FINDINGS: Scattered fibroglandular densities are identified bilaterally. There are benign calcifications bilaterally. No mass or malignant-appearing microcalcifications are seen. The axillae are unremarkable. IMPRESSION: No mammographic features suspicious for malignancy are identified. ACR BI-RADS Category 2: Benign findings. Result letter will be mailed to the patient. Note: At least 10% of breast cancer is not imaged by mammography. Dictated by: Dictated on workstation # [id number]
== END ==
LOC: RAD 14:35
PROVIDERS: ATTEND Nurse Practitioner Family
DX: Z12.31 Encounter for screening mammogram for malignant neoplasm of breast (principal)
CPT/HCPCS: 77067

== ENCOUNTER → 2018-01-15 | Outpatient (CLI) | payer MEDICARE, OTHER ==
[~2018-01-15] MED LIST changes: +BIOT5000 PO; +CYAN250010 PO; +MELA10CA2 PO; -METF1000 PO; +METF10002 PO; +MULT-192 PO; +MV-M1TAB20 PO; +PEDI18TA2 PO; +ROPI0.25 PO
--- NOTE | 2018-01-15 12:49 | Diagnostic Imaging Report ---
EXAM: PA and lateral chest FINDINGS: Heart size and pulmonary vascularity are normal. The lungs are clear. There are no effusions or pneumothoraces. IMPRESSION: Negative chest. Dictated by: Dictated on workstation # [id number]
== END ==
LOC: RAD 12:15
PROVIDERS: ATTEND Nurse Practitioner Family
DX: R05 Cough (principal)
CPT/HCPCS: 71046

== ENCOUNTER 2018-01-23 10:57 | Day surgery (SDC) | payer MEDICARE, OTHER ==
[~2018-01-23] VITALS: Ht 162.6 cm; Wt 104.0 kg
[2018-01-23] MEDS ORDERED: NS IV 500 ML 500 ML IV PRN (11:04)
[2018-01-23] MEDS ORDERED: NS IV 500 ML 500 ML ONE (11:13)
[2018-01-23] MEDS ORDERED: HURRICAINE EXT TUBE (BENZOCAINE) XX PRN (11:15)
[2018-01-23] MEDS ORDERED: LIDOCAINE JELLY 2% (XYLOCAINE) 5 ML TUBE ONE (11:18)
[2018-01-23] MEDS ORDERED: fentaNYL INJECTION 100 MCG/2 ML AMP ONE ×3 (11:18→12:13)
[2018-01-23] MEDS ORDERED: HURRICAINE EXT TUBE (BENZOCAINE) ONE (11:19)
[2018-01-23] MEDS ORDERED: MIDAZOLAM 2 MG/2 ML (VERSED) VIAL ONE ×6 (11:19→12:01)
[2018-01-23 11:25] VITALS: BP 178/104
--- NOTE | 2018-01-23 11:29 | Conscious Sedation/ASA ---
Conscious Sedation Pre-Proced Time Reviewed: 11:20 ASA Class: 2 Airway Mallampati Classification: ([place] appropriate class) I. II. III, IV Lungs Heart ASA score ASA 1: a normal healthy patient ASA 2: a patient with a mild systemic disease (mid diabetes, controlled hypertension, obesity ASA 3: a patient with a severe systemic disease that limits activity (angina , COPD, prior Myocardial infarction) ASA 4: a patient with an incapacitating disease that is a constant threat to life (CHF, renal failure) ASA 5: a moribund patient not expected to survive 24 hrs. (ruptured aneurysm) ASA 6: a declared brain patient whose organs are being harvested. For emergent operations, add the letter E after the classification Grade 2 Sedation Plan: Analgesia, Amnesia, Plan communicated to team members, Discussed options with patient/fam, Discussed risks with patient/fam Note The patient is an appropriate candidate to undergo the planned procedure, sedation, and anesthesia. The patient immediately re-assessed prior to indication. BOBBY YOUNGER MD January 23, 2018 11:28 am
--- NOTE | 2018-01-23 11:29 | Progress Note-Pre Operative ---
Pre-Operative Progress Note H&P Reviewed The H&P was reviewed, patient examined and no changes noted. Date Seen by Provider: January 23, 2018 Time Seen by Provider: 11:20 Date H&P Reviewed: January 23, 2018 Time H&P Reviewed: :20 Pre-Operative Diagnosis: anemia BOBBY YOUNGER MD January 23, 2018 11:29 am
[2018-01-23] MEDS ORDERED: HYDROcodone/APAP 5 MG/325 MG (LORTAB) TAB PO PRN (11:30)
[2018-01-23] MEDS ORDERED: ACETAMINOPHEN 325 MG TABLET/CAPLET (TYLENOL) PO PRN (11:30)
[2018-01-23] MEDS ORDERED: ONDANSETRON 4 MG/2 ML (SDV) Z0FRAN IV PRN (11:30)
[2018-01-23] MEDS ORDERED: morphine INJ 10 MG/ML 1ML (SYR OR VIAL) IV PRN (11:30)
[2018-01-23] MEDS: MIDAZOLAM 2 MG/2 ML (VERSED) VIAL IVP PRN ×6 (11:42→12:10)
[2018-01-23] MEDS: fentaNYL INJECTION 100 MCG/2 ML AMP IVP PRN ×5 (11:43→12:19)
--- NOTE | 2018-01-23 12:35 | Progress Note-Post Operative ---
Post-Operative Progess Note Surgeon (s)/Optimization Consultant (s) Surgeon BOBBY YOUNGER MD Optimization Consultant: none Pre-Operative Diagnosis anemia Post-Operative Diagnosis intact gastric pouch, small HH(2cm), no marginal ulcers. chronic stage 2-3 ext and int hemorrhoids. Procedure & Operative Findings Date of Procedure 01/23/18 Procedure Performed/Findings EGD with bx. Colonoscopy. Anesthesia Type CS Estimated Blood Loss Estimated blood loss (mL): minimal Specimens/Packing Specimens Removed GE jxn, antrum BOBBY YOUNGER MD January 23, 2018 12:35 pm
--- NOTE | 2018-01-23 12:36 | Discharge Inst-Surgical ---
D/C Lap Instructions-CARISA Follow Up Appt in 2 weeks Activity as tolerated High Fiber Diet 25g or more per day Avoid Alcohol, Caffeine, Spicy Dovray and Acid foods. Drink 64 fluid oz or more of fluids per day. Symptoms to Report: Fever over 101 degree F, Nausea/Vomiting If any problems/questions: Contact your physician or go to Emergency Room BOBBY YOUNGER MD January 23, 2018 12:36 pm
[2018-01-23] MEDS ORDERED: LIDOCAINE JELLY 2% (XYLOCAINE) 5 ML TUBE TOP ONE (12:45)
[2018-01-23 12:50] VITALS: BP 152/83
[2018-01-23 13:20] VITALS: BP 163/101
[2018-01-23 13:29] VITALS: BP 163/101
--- NOTE | 2018-01-24 00:36 | OPERATIVE REPORT ---
DATE OF SERVICE: 01/23/2018 ATTENDING PHYSICIAN: Dr. Gorman. PREOPERATIVE DIAGNOSIS: Anemia. POSTOPERATIVE DIAGNOSES: Reflux esophagitis class B, small hiatal hernia approximately 2 cm in size, intact gastric pouch, no marginal ulcers or active bleeding. Mild gastritis of the distal antrum. Chronic between stage II and III external and internal hemorrhoids. The remainder of the colon and rectum were normal. PROCEDURES: EGD with biopsy and colonoscopy. SURGEON: Bobby Younger MD. ANESTHESIA: Conscious sedation. ESTIMATED BLOOD LOSS: Minimal. FINDINGS: 1. EGD: Reflux esophagitis class B, small hiatal hernia approximately 2 cm in size, intact gastric pouch, status post gastric sleeve resection with no marginal ulcerations or active bleeding. There was some mild gastritis of the antral remnant, no ulcerations or bleeding. Pylorus and duodenum appeared normal with no distal obstructions. 2. COLONOSCOPY: Chronic stage between stage II and III external and internal hemorrhoids, slightly irritated most likely secondary to the colonic prep. There was no active bleeding identified. The remainder of the rectum and colon were normal. There were no polyps identified as well as no bleeding sources. DISPOSITION: The patient tolerated the procedure well. INDICATIONS: The patient is a 67-year-old female known to us. She has had a longstanding history of morbid obesity. She underwent a laparoscopic adjustable gastric band with a VG band in 2005. She was unsuccessful with this and this was removed and then she underwent an interval gastric sleeve resection on 06/26/2017. She has been noncompliant and states that she has not done well with the weight loss. She reports that because of this she has essentially given up and has been completely noncompliant and eats whatever she wants. During this process, she has reported worsening shortness of breath and fatigue and was found to be anemic. DESCRIPTION OF PROCEDURE: The patient was brought to the endoscopy suite, laid in the left lateral decubitus position. After adequate IV pain and sedative medications and conscious sedation anesthesia, the mouthpiece was applied. Endoscope was placed in the mouth, visualizing the pharynx and hypopharyngeal region. Vocal cords, epiglottis and vallecula identified and appeared to be normal. Endoscope was gently intubated at the esophageal opening and the esophagus insufflated. The endoscope was then advanced to the 1st, 2nd and 3rd portions of the esophagus at the level of the GE junction, a reflux esophagitis class B identified. There were no ulcers or strictures identified in this region. A biopsy was taken with forceps with visualization of good hemostasis. The endoscope was then advanced into the stomach and the endoscope retroflexed, visualizing a small hiatal hernia approximately 2 cm in size. There was an intact gastric pouch, status post gastric sleeve resection. The gastric pouch appeared to be slightly larger in size; however, there were no marginal ulcerations or any active bleeding sources identified. Towards the antral remnant of the stomach, there was a mild to moderate gastritis, no ulcers or any bleeding sources. A biopsy was taken of this region with forceps with visualization of good hemostasis. The endoscope was then advanced through the pylorus into the first and second portions of duodenum, which appeared normal with no distal obstructions. The endoscope was then withdrawn while taking a second look and suctioning of residual air with no additional findings. The patient tolerated this portion of the procedure well. There was no bleeding source identified and it appears that she does have an intact gastric sleeve resection with no signs of ulcerations. She does have a small hiatal hernia; however, there are no Russ ulcers to indicate any bleeding from this region. We will recommend continued medical management with a proper diet and exercise with a high protein diet again with at least 50 grams of protein daily from a lean meat protein sources and should be first and foremost to augment restriction. She also needs to restart and maintain a regularly scheduled intense exercise activity for 150 minutes weekly. Under the same anesthesia, we then proceeded with the colonoscopy portion of the procedure. A digital rectal examination was performed, which revealed chronic between stage II and III external and internal hemorrhoids not actively edematous nor inflamed and no bleeding. There was slight irritation of the hemorrhoidal cushions most likely secondary to the colonic preparation; however, there was no active bleeding identified. Normal sphincter tone was felt and there were no palpable masses. The endoscope was then intubated to the anus and rectum was gently insufflated. The endoscope was then advanced through the valves of [place] in the rectum with no polyps or any neoplasms identified. Endoscope was then advanced through the sigmoid colon where no diverticulosis was identified. Endoscope was then advanced through the remainder of the descending, transverse and ascending colon to the cecum. These segments were normal. There were no polyps, neoplasms or any mucosal inflammatory changes nor any active bleeding source identified throughout the colon or rectum. The endoscope was then slowly withdrawn while taking a second look and suctioning the residual air with no additional findings. The patient tolerated the procedure well. We will recommend a high-fiber diet with at least 25 grams of fiber per day as well as at least 64 fluid ounces of water daily to promote soft stools on a daily basis. At this time, we are unsure of the etiology of her anemia. There were no active bleeding sources identified throughout the upper or lower gastrointestinal tract. There does not appear to be any component of gastrointestinal bleeding as well. We will continue to monitor her laboratory work as well as to potentially redraw her iron and vitamin B12. Job ID: [id number] DocumentID: [id number] Dictated Date: 01/23/2018 12:46:07 Paper Coating Supervisor Date: 01/24/2018 00:35:14 Dictated By: BOBBY YOUNGER MD
== END 2018-01-23 13:35 | disposition home or self-care (01) ==
LOC: ENDO 10:57
PROVIDERS: ATTEND Surgery
DX: K21.0 Gastro-esophageal reflux disease with esophagitis (principal); K44.9 Diaphragmatic hernia without obstruction or gangrene; K29.70 Gastritis, unspecified, without bleeding; K64.1 Second degree hemorrhoids; K58.9 Irritable bowel syndrome, unspecified; D64.9 Anemia, unspecified; I10 Essential (primary) hypertension; E11.43 Type 2 diabetes mellitus with diabetic autonomic (poly)neuropathy; G47.33 Obstructive sleep apnea (adult) (pediatric); E66.01 Morbid (severe) obesity due to excess calories; Z68.39 Body mass index [BMI] 39.0-39.9, adult; Z98.84 Bariatric surgery status; Z79.82 Long term (current) use of aspirin; Z79.84 Long term (current) use of oral hypoglycemic drugs; Z79.899 Other long term (current) drug therapy
CPT/HCPCS: 88305; 88342

== ENCOUNTER → 2018-01-26 | Outpatient (CLI) | payer MEDICARE, OTHER | LOC: CARD 09:16 | PROVIDERS: ATTEND Internal Medicine Cardiovascular Disease | DX: E11.9 Type 2 diabetes mellitus without complications (principal); E03.9 Hypothyroidism, unspecified; E66.9 Obesity, unspecified; Z82.49 Family history of ischemic heart disease and other diseases of the circulatory system; Z87.891 Personal history of nicotine dependence | CPT/HCPCS: 93306 ==

== ENCOUNTER → 2018-01-28 | Outpatient (CLI) | payer MEDICARE, OTHER ==
[~2018-01-28] VITALS: Ht 162.6 cm; Wt 107.0 kg
[~2018-01-28] MED LIST changes: +CATHETER FLUSH 10 ML SYR IV PRN; +REGADENOSON 0.4 MG/5 ML SYR (LEXISCAN) IV ONE
[2018-01-28 09:03] VITALS: BP 127/83
--- NOTE | 2018-01-28 18:19 | STRESS TEST ---
DATE OF SERVICE: 01/28/2018 EXERCISE MYOVIEW STRESS TEST REPORT REFERRING PHYSICIAN: Gloria Gorman MD Baseline heart rate is 69. Baseline blood pressure is 151/88. Baseline EKG is sinus rhythm with no ischemic changes. In summary, the patient was injected with 10.78 mCi of technetium-99 Myoview and the resting images were obtained. Then, the patient started exercising with a baseline heart rate, blood pressure and EKG mentioned above. She was able to exercise for a total of 3 minutes on standard Bennett protocol. With peak exercise level, EKG was showing minimal nondiagnostic changes. Blood pressure at peak was 196/90. During recovery, heart rate and blood pressure returned to baseline. EKG returned to baseline. The resting and stress images were reviewed and compared in the short axis, horizontal long axis, and vertical long axis views. Review of the images showed dense breast tissue affecting the quality of the images with typical female pattern, mild decreased uptake at the mid to apical anterolateral wall with subtle reversibility. SSS is 3, SDS 3, TID value 1.09. On the gated images, the left ventricle appeared to be in normal size with normal contractility. Calculated ejection fraction 69%. CONCLUSION: 1. Poor exercise tolerance, a total of 3 minutes on standard Bennett protocol, total of 4.6 METS achieving 90% of maximum expected heart rate. 2. Hypertensive response to exercise, returned to baseline during recovery. 3. Breast attenuation with dense breast tissues affecting the quality of the images, overall there is no significant ischemia or infarction on SPECT images. 4. Normal left ventricular size with normal contractility. Calculated ejection fraction 69%. Job ID: [id number] DocumentID: [id number] Dictated Date: 01/28/2018 15:20:51 Convertible Sofa Bedspring Tester Date: 01/28/2018 18:18:31 Dictated By: RAMO SWEET MD
== END ==
LOC: CARD 07:17
PROVIDERS: ATTEND Internal Medicine Cardiovascular Disease
DX: E11.9 Type 2 diabetes mellitus without complications (principal); E03.9 Hypothyroidism, unspecified; E66.9 Obesity, unspecified; Z68.41 Body mass index [BMI] 40.0-44.9, adult; Z82.49 Family history of ischemic heart disease and other diseases of the circulatory system; Z87.891 Personal history of nicotine dependence
CPT/HCPCS: 78452; 93017

== ENCOUNTER → 2018-05-14 | Outpatient (CLI) | payer MEDICARE, OTHER ==
[~2018-05-14] MED LIST changes: -CATHETER FLUSH 10 ML SYR IV PRN; -LOSA25TA21 PO; +LOSA25TA6 PO; +METF-399 PO; -METF10002 PO; -REGADENOSON 0.4 MG/5 ML SYR (LEXISCAN) IV ONE; -ROPI0.25 PO; +ROPI0.253 PO
--- NOTE | 2018-05-14 09:58 | Diagnostic Imaging Report ---
PROCEDURE: MRI lumbar spine. TECHNIQUE: Multiplanar, multisequence MRI of the lumbar spine was performed without contrast. INDICATION: Right foot drop COMPARISON: 01/16/2004 FINDINGS: For the purposes of this exam, last well-formed disc space is denoted the L5-S1 level. Evaluation of the static alignment demonstrates slight grade 1 anterolisthesis of L4-L5. There is no evidence of jumped facets. Vertebral body heights are maintained. There is no evidence of acute fracture. Marrow signal demonstrates Modic type II change of the adjacent endplates at the L1-L2 and L5-S1 levels. Otherwise, marrow signal is unremarkable. There is multilevel intervertebral disc height loss with anterior and posterior bulging, also greatest at L1-L2 and L5-S1 levels. Visualized portions of the distal cord are unremarkable. Conus terminates at approximately the L1 level. No abnormal intrathecal filling defects are seen. Pre-and paravertebral soft tissue structures are unremarkable. Axial images demonstrate the following: T12-L1: There is no large disc bulge or focal protrusion. There is no significant spinal canal or neuroforaminal stenosis L1-L2: There is mild broad-based posterior disc bulge and minimal ligamentum flavum laxity. As a result, there is mild narrowing of the spinal canal and bilateral neuroforamen. L2-L3: There is no large disc bulge or focal protrusion. There is no significant spinal canal or neuroforaminal stenosis. L3-L4: There is no large disc bulge or focal protrusion. There is no significant spinal canal or neuroforaminal stenosis. L4-L5: There is mild broad-based posterior disc bulge with probable posterior annular tear. There is also moderate bilateral facet arthropathy. As a result, there is mild narrowing of the spinal canal and bilateral neuroforamen. L5-S1: Posterior disc osteophyte complex formations are identified posteriorly, bilaterally. There is also posterior annular tear and bilateral facet arthropathy. As a result, there is mild narrowing of the bilateral neuroforamen. There is no significant spinal canal stenosis IMPRESSION: 1. Multilevel degenerative changes of the lumbar spine as described above. 2. No acute fracture or dislocation. Dictated by: Dictated on workstation # [id number]
== END ==
LOC: RAD 08:06
PROVIDERS: ATTEND Nurse Practitioner Family
DX: M48.061 Spinal stenosis, lumbar region without neurogenic claudication (principal); M43.16 Spondylolisthesis, lumbar region; M51.27 Other intervertebral disc displacement, lumbosacral region; M51.37 Other intervertebral disc degeneration, lumbosacral region; M99.73 Connective tissue and disc stenosis of intervertebral foramina of lumbar region; M46.86 Other specified inflammatory spondylopathies, lumbar region
CPT/HCPCS: 72148

== ENCOUNTER 2018-09-23 11:10 | Outpatient (RCR) | payer MEDICARE, OTHER ==
[2018-09-11] MEDS: ACETAMINOPHEN 325 MG TABLET PO SCH (10:46)
[2018-09-11] MEDS: IRON SUCROSE 200 MG/10 ML (VENOFER) VIAL IV SCH (10:55)
[2018-09-11 11:30] VITALS: BP 137/67
[2018-09-14] MEDS: ACETAMINOPHEN 325 MG TABLET PO SCH (11:50)
[2018-09-14] MEDS: IRON SUCROSE 200 MG/10 ML (VENOFER) VIAL IV SCH (12:18)
[2018-09-14 12:42] VITALS: BP 155/94
[2018-09-16] MEDS: diphenhydrAMINE 25 MG TAB (BENADRYL) PO SCH (13:33)
[2018-09-16] MEDS: ACETAMINOPHEN 325 MG TABLET PO SCH (13:34)
[2018-09-16] MEDS: IRON SUCROSE 200 MG/10 ML (VENOFER) VIAL IV SCH (13:38)
[2018-09-16 14:20] VITALS: BP 144/71
[2018-09-21] MEDS: ACETAMINOPHEN 325 MG TABLET PO SCH (08:14)
[2018-09-21] MEDS: IRON SUCROSE 200 MG/10 ML (VENOFER) VIAL IV SCH (08:14)
[2018-09-21] MEDS: diphenhydrAMINE 25 MG TAB (BENADRYL) PO SCH (08:14)
[2018-09-21 08:26] VITALS: BP 140/77
[~2018-09-23] VITALS: Ht 162.6 cm; Wt 105.2 kg
[2018-09-23 11:10] VITALS: BP 140/84
[~2018-09-23 11:10] MED LIST changes: +ACETAMINOPHEN 325 MG TABLET ONE; +IRON SUCROSE 200 MG/10 ML (VENOFER) VIAL IV ONE; +diphenhydrAMINE 25 MG TAB (BENADRYL) PO ONE; +diphenhydrAMINE 50 MG/ML INJ (BENADRYL) IV SCH; +diphenhydrAMINE 50 MG/ML INJ (BENADRYL) ONE
[2018-09-23] MEDS ORDERED: IRON SUCROSE 200 MG/10 ML (VENOFER) VIAL IV SCH (11:30)
[2018-09-23] MEDS ORDERED: ACETAMINOPHEN 325 MG TABLET PO SCH (11:30)
[2018-09-23] MEDS: diphenhydrAMINE 25 MG TAB (BENADRYL) PO SCH (11:32)
== END 2018-09-25 14:34 | disposition home or self-care (01) ==
LOC: SDC 11:10
PROVIDERS: ATTEND Family Medicine
DX: D50.9 Iron deficiency anemia, unspecified (principal)
CPT/HCPCS: 96365; 96374

== ENCOUNTER 2019-05-14 11:06 | Outpatient (RCR) | payer MEDICARE, OTHER ==
[2019-05-07 10:55] VITALS: BP 191/84
[2019-05-07] MEDS: FERRIC CARBOXYMALTOSE INJ 750 MG in NS (IVPB) 250 ML IV SCH (11:29)
[~2019-05-14] VITALS: Ht 162.6 cm; Wt 105.2 kg
[~2019-05-14 11:06] MED LIST changes: -ACETAMINOPHEN 325 MG TABLET ONE; -IRON SUCROSE 200 MG/10 ML (VENOFER) VIAL IV ONE; +LOSA25TA41 PO; -LOSA25TA6 PO; -diphenhydrAMINE 25 MG TAB (BENADRYL) PO ONE; -diphenhydrAMINE 50 MG/ML INJ (BENADRYL) IV SCH; -diphenhydrAMINE 50 MG/ML INJ (BENADRYL) ONE
[2019-05-14 11:15] VITALS: BP 145/71
[2019-05-14] MEDS: FERRIC CARBOXYMALTOSE INJ 750 MG in NS (IVPB) 250 ML IV SCH (11:28)
== END 2019-05-14 12:57 | disposition home or self-care (01) ==
LOC: SDC 11:06
PROVIDERS: ATTEND Family Medicine
DX: D50.8 Other iron deficiency anemias (principal)
CPT/HCPCS: 96365

== ENCOUNTER → 2019-05-31 | Outpatient (CLI) | payer MEDICARE, OTHER ==
--- NOTE | 2019-05-31 10:58 | Diagnostic Imaging Report ---
Indication: Routine screening. Comparison is made with prior mammogram from 12/17/2017 and 12/09/2016. 2-D and 3-D bilateral screening mammography was performed with CAD. Scattered fibroglandular densities are identified bilaterally. Scattered benign-appearing calcifications again noted bilaterally. No mass or malignant-appearing microcalcifications are seen. The axillae are unremarkable. Impression: BI-RADS category 2 No mammographic features suspicious for malignancy are identified. ACR BI-RADS Category 2: Benign findings. Result letter will be mailed to the patient. Note: At least 10% of breast cancer is not imaged by mammography. Dictated by: Dictated on workstation # [id number]
== END ==
LOC: RAD 09:42
PROVIDERS: ATTEND Nurse Practitioner Family
DX: Z12.31 Encounter for screening mammogram for malignant neoplasm of breast (principal)
CPT/HCPCS: 77067

== ENCOUNTER 2020-02-21 05:46 | Outpatient (RCR) | payer MEDICARE, OTHER ==
[~2020-02-21] VITALS: Ht 162 cm; Wt 106.8 kg
[~2020-02-21 05:46] MED LIST changes: -ACET-2469 PO; +ACET-2715 PO; +FENO134C PO; +GLIP10TA13 PO; +PRAV20TA3 PO; +PYRI100T10 PO; -PYRI100T2 PO; +SERT100T8 PO
== END 2020-02-21 15:13 | disposition home or self-care (01) ==
LOC: PREOP 05:46
PROVIDERS: ATTEND Surgery
DX: Z01.818 Encounter for other preprocedural examination (principal); Z11.59 Encounter for screening for other viral diseases
CPT/HCPCS: 87635

== ENCOUNTER 2020-02-24 08:17 | Day surgery (SDC) | payer MEDICARE, OTHER ==
[2020-02-24] VITALS (12 sets, daily range): BP systolic 118–178; BP diastolic 62–88
[~2020-02-24] VITALS: Ht 162 cm; Wt 106.8 kg
[2020-02-24] MEDS ORDERED: ceFAZolin 2 GM IV Premixed 50 ML IV ONE (08:30)
--- NOTE | 2020-02-24 08:38 | Progress Note-Pre Operative ---
Pre-Operative Progress Note H&P Reviewed The H&P was reviewed, patient examined and no changes noted. Date Seen by Provider: Feb 24, 2020 Time Seen by Provider: 08:38 Date H&P Reviewed: Feb 24, 2020 Time H&P Reviewed: 08:38 Pre-Operative Diagnosis: incisional hernia LORRIE ANDERSEN DO Feb 24, 2020 08:38
[2020-02-24] MEDS: LACTATED RINGERS 1,000 ML IV PRN ×2 (08:45→10:03)
[2020-02-24] MEDS ORDERED: CATHETER FLUSH 10 ML SYR IV PRN (08:45)
[2020-02-24] MEDS ORDERED: BUP/EPI 0.5% 1:200,000 (SENSORCAINE) 30 ML VIAL ONE (08:53)
[2020-02-24 08:56] LABS: BASOPHILS % (AUTO) 1 % (0-10); EOSINOPHILS # (AUTO) 0.4 10^3/uL (0.0-0.3); EOSINOPHILS % (AUTO) 8 % (0-10); HEMATOCRIT 45 % (35-52); HEMOGLOBIN 15.1 G/DL (11.5-16.0); LYMPHOCYTES # (AUTO) 1.2 X 10^3 (1.0-4.0); LYMPHOCYTES % (AUTO) 26 % (12-44); MEAN CORPUSCULAR HEMOGLOBIN 30 PG (25-34); MEAN CORPUSCULAR HGB CONC 34 G/DL (32-36); MEAN CORPUSCULAR VOLUME 88 FL (80-99); MEAN PLATELET VOLUME 10.4 FL (7.4-10.4); MONOCYTES # (AUTO) 0.3 X 10^3 (0.0-1.0); MONOCYTES % (AUTO) 6 % (0-12); NEUTROPHILS # (AUTO) 2.9 X 10^3 (1.8-7.8); NEUTROPHILS % (AUTO) 61 % (42-75); PLATELET COUNT 195 10^3/uL (130-400); RED CELL DISTRIBUTION WIDTH 13.7 % (10.0-14.5); WHITE BLOOD COUNT 4.8 10^3/uL (4.3-11.0)
[2020-02-24] MEDS ORDERED: MIDAZOLAM 2 MG/2 ML (VERSED) VIAL ONE (09:01)
[2020-02-24] MEDS ORDERED: LIDOCAINE PF 2% 5 ML (XYLOCAINE) VIAL ONE (09:01)
[2020-02-24] MEDS ORDERED: fentaNYL INJECTION 100 MCG/2 ML AMP ONE (09:01)
[2020-02-24] MEDS ORDERED: ROCURONIUM 10 MG/ML 5 ML SYRINGE IV ONE (09:01)
[2020-02-24] MEDS ORDERED: SEVOFLURANE (ULTANE) 15 ML INHAL SOLN ONE ×2 (09:01→10:37)
[2020-02-24] MEDS ORDERED: ONDANSETRON 4 MG/2 ML (SDV) Z0FRAN ONE (09:01)
[2020-02-24] MEDS ORDERED: proPOfol 200 MG/20 ML (DIPRIVAN) VIAL IV ONE (09:01)
[2020-02-24] MEDS ORDERED: HYDROmorphone 2 MG/ML VIAL (DILAUDID) ONE ×2 (09:55→10:35)
[2020-02-24] MEDS ORDERED: GLYCOPYRROLATE 0.2 MG/ML (ROBINUL) 2 ML VIAL ONE (10:08)
[2020-02-24] MEDS ORDERED: NEOSTIGMINE 3 MG/3 ML VIAL ONE (10:08)
--- NOTE | 2020-02-24 10:14 | Progress Note-Post Operative ---
Post-Operative Progess Note Surgeon (s)/Cigar Tobacco Rehandler (s) Surgeon LORRIE ANDERSEN DO Cigar Tobacco Rehandler: Dr. Ovalle to assist in retraction dissection and closure. Pre-Operative Diagnosis incisional hernia Post-Operative Diagnosis incarcerated incisional hernia Procedure & Operative Findings Date of Procedure 02/24/20 Procedure Performed/Findings PROCEDURE: Laparoscopic incarcerated incsional hernia repair with mesh. COMPLICATIONS: None. INDICATIONS: The patient is a 70, female with an incisional hernia, which has continued to increase in size and cause discomfort. The patient was explained the risk and benefits of the procedure and wished to proceed with the procedure. Consent was signed on the chart. DESCRIPTION OF PROCEDURE: The patient was taken into the operating suite, prepped and draped in sterile fashion. Surgical pause was performed. Local anesthetic was infiltrated in left upper quadrant. A 15 blade scalpel was used to make a small skin incision. Cautery was used to dissect down to the fascia, which was then scored and divided the muscle, went through the posterior sheath and a balloon trocar was inserted into the abdomen. The abdomen was then insufflated. Incarcerated incisional hernia containing fat. A 5 mm trocar was placed in the right lower quadrant and a 5 mm trocar was placed in left lower quadrant. Hernia contents were reduced. with cautery and blunt dissection. The defect was then closed using 0 Vicryl with a Jb-Ju. Echo Ventralight mesh was then inserted in the abdomen grabbed through the stab incision. The balloon was inflated on the mesh. Circumferential tacks were placed with a SecureStrap Tacker. The balloon was then removed and inner crown was created as well. The mesh was tacked with pressure being decreased. The 12 mm fascial defect was then closed using 0 Vicryl. The abdomen was then desufflated,the trocars were removed. The skin was then closed using 4-0 Monocryl in a running subcuticular fashion. The abdomen was washed and dried and Skin Affix was placed over the incisions. The patient tolerated procedure well without any complications. She was taken to recovery room in stable condition. Anesthesia Type general Estimated Blood Loss Estimated blood loss (mL): min Specimens/Packing Specimens Removed LORRIE Iyer DO Feb 24, 2020 10:13
[2020-02-24] MEDS ORDERED: HYDR-4226 PO (10:15)
[2020-02-24] MEDS ORDERED: DOCU-143 PO (10:15)
--- NOTE | 2020-02-24 10:20 | Discharge Inst-Simple/Standard ---
Discharge Inst-Standard Discharge Medications New, Converted or Re-Newed RX: RX on Chart Patient Instructions/Follow Up Plan of Care/Instructions/FU: 2 weeks Kathie Activity as Tolerated: No Discharge Diet: Regular Diet Other Inst to Patient Follow up Appt: Make appointment for 2 week. Instructions: No lifting greater than 10 pounds. No strenuous activity. May shower in 24 hours, no tub bath or soaking. Use incentive spirometer at home as directed. No Smoking Skin/Wound Care: You have special glue over your incision that will fall off on it's own. Symptoms to Report: Appetite Changes, Extremity Discoloration, Numbness/Tingling, Swelling Increased, Bleeding Excessive, Eyesight Changes, Pain Increased, Urine Color Change, Constipation(Persistent), Fever over 101 degree F, Pain/Pressure in chest, Urinating Difficulty, Cough Up/Vomit Blood, Heart Beat Irreg/Pounding, Pain/Pressure in jaw, Vaginal Bleeding Increase, Cramps in feet or legs, Lightheadedness, Pain/Pressure in shoulder, Diarrhea(Persistent), Memory Changes Suddenly, Questions/Concerns, Weight gain consecutive days, Dizziness/Fainting, Nausea/Vomiting, Shortness of Breath, Weight gain over 2 pounds If questions or concerns contact your physician Or seek help at emergency department. LORRIE ANDERSEN DO Feb 24, 2020 10:20
[2020-02-24] MEDS ORDERED: ONDANSETRON 4 MG/2 ML (SDV) Z0FRAN IVP PRN (10:30)
[2020-02-24] MEDS ORDERED: HYDROmorphone 2 MG/ML VIAL (DILAUDID) IV ONE (10:30)
[2020-02-24] MEDS ORDERED: DESFLURANE (SUPRANE) 15 ML INHAL SOLN ONE (10:38)
--- NOTE | 2020-02-24 14:45 | Anesthesia-General Post-Op ---
General Patient Condition Mental Status/LOC: Same as Preop Cardiovascular: Satisfactory Nausea/Vomiting: Absent Respiratory: Satisfactory Pain: Controlled Complications: Absent Post Op Complications Complications None Follow Up Care/Instructions Patient Instructions None needed. Anesthesia/Patient Condition Patient Condition Patient is doing well, no complaints, stable vital signs, no apparent adverse anesthesia problems. No complications reported per nursing. D/C home per [facility] [place] Criteria: Yes TED DON CRNA Feb 24, 2020 14:45
== END 2020-02-24 12:38 | disposition home or self-care (01) ==
LOC: SDC 08:17
PROVIDERS: ATTEND Surgery
DX: K43.0 Incisional hernia with obstruction, without gangrene (principal); Z11.2 Encounter for screening for other bacterial diseases; Z68.41 Body mass index [BMI] 40.0-44.9, adult; E66.9 Obesity, unspecified; I10 Essential (primary) hypertension; E89.0 Postprocedural hypothyroidism; E78.5 Hyperlipidemia, unspecified; G47.33 Obstructive sleep apnea (adult) (pediatric); E11.40 Type 2 diabetes mellitus with diabetic neuropathy, unspecified; M06.9 Rheumatoid arthritis, unspecified; M79.10 Myalgia, unspecified site; F32.9 Major depressive disorder, single episode, unspecified; F41.9 Anxiety disorder, unspecified; M48.00 Spinal stenosis, site unspecified; K21.9 Gastro-esophageal reflux disease without esophagitis; K58.9 Irritable bowel syndrome, unspecified; Z98.84 Bariatric surgery status; Z79.84 Long term (current) use of oral hypoglycemic drugs; Z87.891 Personal history of nicotine dependence; Z79.82 Long term (current) use of aspirin; Z79.899 Other long term (current) drug therapy
CPT/HCPCS: 49655; 82962; 85025; 87081; C1781; 36415

== ENCOUNTER 2021-04-13 13:25 | Outpatient (RCR) | payer MEDICARE ==
[~2021-04-13 13:25] MED LIST changes: -ACET-2715 PO; +ACET-3075 PO; +DOCU-143 PO; +HYDR-4226 PO; -PANT40TA3 PO; +PANT40TA52 PO; +SERT-414 PO; -SERT100T8 PO
[2021-04-13 13:30] VITALS: BP 152/87
[2021-04-13] MEDS ORDERED: methylPREDNISolone 125 MG (Solu-MEDROL) VIAL IVP PRN (14:00)
[2021-04-13] MEDS ORDERED: ACETAMINOPHEN 325 MG TABLET PO PRN (14:00)
[2021-04-13] MEDS ORDERED: diphenhydrAMINE 50 MG/ML INJ (BENADRYL) IVP PRN (14:00)
[2021-04-13] MEDS ORDERED: IRON DEXTRAN 25 MG/NS 6.25 ML TOTAL VOLUME IV ONE ×3 (14:00)
[2021-04-13] MEDS ORDERED: IRON DEXTRAN 1,000 MG/NS 250 ML IVPB IV ONE ×2 (14:00)
[2021-06-26] MEDS ORDERED: SUCR1TAB PO (16:35)
== END 2021-07-12 | disposition home or self-care (01) ==
LOC: SDC 13:25
PROVIDERS: ATTEND Family Medicine
DX: D50.9 Iron deficiency anemia, unspecified (principal)
CPT/HCPCS: 96365

== ENCOUNTER → 2021-04-24 | Outpatient (CLI) | payer MEDICARE ==
--- NOTE | 2021-04-24 16:32 | Diagnostic Imaging Report ---
INDICATION: Routine screening. COMPARISON: 05/31/2019 and 12/17/2017. TECHNIQUE: 2D and 3D bilateral screening mammography was performed with CAD. FINDINGS: Scattered fibroglandular densities are identified bilaterally. Occasional benign calcifications are noted. No mass or malignant-appearing microcalcifications are seen. The axillae are unremarkable. IMPRESSION: No mammographic features suspicious for malignancy are identified. ACR BI-RADS Category 2: Benign findings. Result letter will be mailed to the patient. Note: At least 10% of breast cancer is not imaged by mammography. Dictated by: Dictated on workstation # [id number]
== END ==
LOC: RAD 15:15
PROVIDERS: ATTEND Nurse Practitioner
DX: Z12.31 Encounter for screening mammogram for malignant neoplasm of breast (principal)
CPT/HCPCS: 77063; 77067

== ENCOUNTER 2021-06-29 05:28 | Outpatient (RCR) | payer MEDICARE ==
[~2021-06-29] VITALS: Ht 162.6 cm; Wt 88.0 kg
[~2021-06-29 05:28] MED LIST changes: +SUCR1TAB PO
== END 2021-06-29 13:35 | disposition home or self-care (01) ==
LOC: PREOP 05:28
PROVIDERS: ATTEND Surgery
DX: Z01.812 Encounter for preprocedural laboratory examination (principal); K21.9 Gastro-esophageal reflux disease without esophagitis; Z98.84 Bariatric surgery status; Z20.822 Contact with and (suspected) exposure to COVID-19
CPT/HCPCS: 87635

== ENCOUNTER 2021-07-03 07:29 | Day surgery (SDC) | payer MEDICARE ==
[~2021-07-03] VITALS: Ht 162.6 cm; Wt 88.0 kg
[2021-07-03] MEDS ORDERED: LACTATED RINGERS 1,000 ML IV ONE (07:38)
[2021-07-03] MEDS ORDERED: LACTATED RINGERS 1,000 ML IV STA (07:44)
[2021-07-03] MEDS ORDERED: HURRICAINE EXT TUBE (BENZOCAINE) XX PRN (07:45)
[2021-07-03 08:05] VITALS: BP 149/82
[2021-07-03] MEDS ORDERED: proPOfol 200 MG/20 ML (DIPRIVAN) VIAL IV ONE ×3 (08:33→09:29)
[2021-07-03 09:34] VITALS: BP 150/79
--- NOTE | 2021-07-03 09:37 | Progress Note-Post Operative ---
Post-Operative Progess Note Surgeon (s)/Oyster Grower (s) Surgeon LORRIE ANDERSEN DO Oyster Grower: na Pre-Operative Diagnosis gerd, change in bowel habits, epigastric abdominal pain Post-Operative Diagnosis hiatal and paraesophageal hernia, gastritis, diverticulosis, colon polyps Procedure & Operative Findings Date of Procedure 07/03/21 Procedure Performed/Findings egd c biopsies, colonoscopy c hot bx polypectomy x 3 Anesthesia Type per mda Estimated Blood Loss Estimated blood loss (mL): none Specimens/Packing Specimens Removed antrum, body, ge, descending colon polyps x 2 and rectal polpy LORRIE ANDERSEN DO Jul 03, 2021 09:37
--- NOTE | 2021-07-03 09:39 | Discharge Inst-Simple/Standard ---
Discharge Inst-Standard Patient Instructions/Follow Up Plan of Care/Instructions/FU: 2 weeks Kathie Activity as Tolerated: Yes Discharge Diet: Regular Diet (high fiber) LORRIE ANDERSEN DO Jul 03, 2021 09:39
[2021-07-03 09:40] VITALS: BP 151/72
[2021-07-03 10:10] VITALS: BP 148/69
[2021-07-03 10:20] VITALS: BP 148/69
--- NOTE | 2021-07-03 14:23 | Anesthesia-General Post-Op ---
MAC Patient Condition Mental Status/LOC: Same as Preop Cardiovascular: Satisfactory Nausea/Vomiting: Absent Respiratory: Satisfactory Pain: Controlled Complications: Absent Post Op Complications Complications None Follow Up Care/Instructions Patient Instructions None needed. Anesthesiology Discharge Order Discharge Order Patient was seen this morning after the procedure and she was doing well, no complaints, stable vital signs, no apparent adverse anesthesia problems. GRACE PRYOR DO Jul 03, 2021 14:23
--- NOTE | 2021-07-03 15:18 | OPERATIVE REPORT ---
DATE OF SERVICE: 07/03/2021 PREOPERATIVE DIAGNOSES: Gastroesophageal reflux disease, change in bowel habits and epigastric abdominal pain. POSTOPERATIVE DIAGNOSES: Hiatal hernia, small paraesophageal hernia, gastritis, diverticulosis, and colon polyps. PROCEDURES PERFORMED: EGD with biopsies, colonoscopy with hot biopsy polypectomy x3. SURGEON: Lorrie Vázquez DO. ANESTHESIA: Per MDA. ESTIMATED BLOOD LOSS: None. COMPLICATIONS: None. INDICATIONS FOR PROCEDURE: The patient is a 71-year-old female with GERD symptoms, change in bowel habits and having some epigastric abdominal pain. She understands the risks and benefits of procedure and wished to proceed. Consent was signed in the chart. DESCRIPTION OF PROCEDURE: The patient was taken to endoscopy suite and placed in the left lateral recumbent position. Timeout was performed. Scope was inserted in the mouth, down the esophagus, stomach and into the duodenum without difficulty. There were no polyps, masses or ulcerations within the duodenum. Scope was slowly retracted back to the stomach, where it was further insufflated. Evidence of a previous sleeve gastrectomy was present. Slight erythematous changes. Biopsy of the antrum was obtained. Also, in the body, there was an area what looks to be reactive changes. Biopsy of this area was obtained. Scope was retroflexed noting a hiatal hernia and a small paraesophageal hernia. Scope was returned to its normal position, slowly withdrawn to the distal esophagus. Biopsy of the GE junction was obtained. No polyps, masses or ulcerations. Scope was slowly retracted back until completely removed noting no other pathology. Digital rectal exam was performed. No palpable polyps, masses or ulcerations. Scope was inserted in the rectum and advanced all the way to the cecum with minimal difficulty. Prep was adequate. Scope was then slowly retracted back. No polyps, masses or ulcerations within the cecum, ascending and transverse colon. In the descending colon, two polyps were present, which hot biopsy polypectomy was performed. One was a little larger and flat. Scope was then slowly retracted back into the sigmoid colon; minimal amount of diverticulosis was present. No polyps, masses or ulcerations. Scope was then continuously slowly retracted back in the rectum, where a small polyp was present, which a hot biopsy polypectomy was performed. Scope was then continued to be retracted back and then retroflexed noting no other pathology. Scope was returned to its normal position, slowly withdrawn until completely removed. The patient tolerated the procedure well without any complications. She was taken to the recovery room in stable condition. RECOMMENDATIONS: The patient will continue on current medications. We will await biopsy results. The patient will need a repeat colonoscopy in three years for reevaluation. I also recommended high fiber diet. CC: Erica Willingham - requested, unable to deliver. Job ID: [id number] DocumentID: [id number] Dictated Date: 07/03/2021 09:43:07 Abap Developer Date: 07/03/2021 15:17:24 Dictated By: LORRIE VÁZQUEZ DO
== END 2021-07-03 10:20 | disposition home or self-care (01) ==
LOC: ENDO 07:29
PROVIDERS: ATTEND Surgery
DX: D12.4 Benign neoplasm of descending colon (principal); K62.1 Rectal polyp; Z91.048 Other nonmedicinal substance allergy status; K63.5 Polyp of colon; K22.70 Barrett's esophagus without dysplasia; K57.30 Diverticulosis of large intestine without perforation or abscess without bleeding; K29.70 Gastritis, unspecified, without bleeding; K44.9 Diaphragmatic hernia without obstruction or gangrene; K21.9 Gastro-esophageal reflux disease without esophagitis; I10 Essential (primary) hypertension; E03.9 Hypothyroidism, unspecified; Z98.84 Bariatric surgery status; E78.5 Hyperlipidemia, unspecified; E11.9 Type 2 diabetes mellitus without complications; E66.9 Obesity, unspecified; Z68.33 Body mass index [BMI] 33.0-33.9, adult; Z79.84 Long term (current) use of oral hypoglycemic drugs; Z79.899 Other long term (current) drug therapy; Z80.1 Family history of malignant neoplasm of trachea, bronchus and lung

== ENCOUNTER → 2021-08-09 | Outpatient (CLI) | payer MEDICARE ==
[~2021-08-09] MED LIST changes: +CATHETER FLUSH 10 ML SYR IV PRN
--- NOTE | 2021-08-09 13:00 | Diagnostic Imaging Report ---
INDICATION: Epigastric pain. FINDINGS: Patient was administered 5.4 mCi technetium 99m Choletec and imaging over the abdomen was performed. At one hour, patient ingested 8 ounces of Ensure and gallbladder ejection fraction was calculated. There is homogeneous uptake of activity by the liver. There is prompt excretion of activity into the gallbladder and common duct. Normal passage of activity into the small bowel is noted. There is also small amount of gastric uptake consistent with bile reflux. Gallbladder ejection fraction is normal at 69%. IMPRESSION: 1. Patent cystic duct and common bile duct with normal ejection fraction of 69%. 2. Findings suggestive of gastric bile reflux. Dictated by: Dictated on workstation # [id number]
== END ==
LOC: CARD 10:00
PROVIDERS: ATTEND Surgery
DX: R10.13 Epigastric pain (principal)
CPT/HCPCS: 78227; A9537

== ENCOUNTER 2022-07-05 12:03 | Outpatient (CLI) | payer MEDICARE ==
[~2022-07-05] VITALS: Ht 162.5 cm; Wt 100.0 kg
[~2022-07-05 12:03] MED LIST changes: -CATHETER FLUSH 10 ML SYR IV PRN; -FENO134C PO; +FENO134C21 PO
[2022-07-09] MEDS ORDERED: FERR325T24 PO (17:49)
[2022-07-09] MEDS ORDERED: EMPA25TA PO (17:49)
== END 2022-07-10 18:26 | disposition home or self-care (01) ==
LOC: PREOP 12:03
PROVIDERS: ATTEND Specialist
DX: Z01.818 Encounter for other preprocedural examination (principal)

== ENCOUNTER 2022-07-12 10:28 | Day surgery (SDC) | payer MEDICARE ==
[~2022-07-12] VITALS: Ht 162.5 cm; Wt 100.0 kg
[~2022-07-12 10:28] MED LIST changes: +EMPA25TA PO; +FERR325T24 PO
[2022-07-12] MEDS ORDERED: MIDAZOLAM 2 MG/2 ML (VERSED) VIAL ONE (10:39)
[2022-07-12] MEDS: TETRACAINE 0.5% OPHTH SOLN 4 ML BTL (SINGLE DOSE ONLY) OU PRN ×4 (10:54→11:10)
[2022-07-12] MEDS: PHENYLEPHRINE 10% OPHTH (NEO-SYN) 5 ML BTL OU SCH ×3 (11:00→11:10)
[2022-07-12] MEDS: TROPICAMIDE 1% OPH SOLN (MYDRIACYL) 15 ML BTL OP SCH ×3 (11:00→11:10)
[2022-07-12] MEDS ORDERED: TIMOLOL MALEATE 0.5% 5 ML (TIMOPTIC) BTL OU PRN (11:00)
[2022-07-12] MEDS ORDERED: POVIDONE (BETADINE) OPHTH SOLN 5% 30 ML OP ONE (11:00)
[2022-07-12] MEDS ORDERED: MOXIFLOXACIN OPHTH SOLN 5 MG/ML 0.3 ML SYRINGE OP ONE (11:00)
[2022-07-12 11:02] VITALS: BP 166/76
--- NOTE | 2022-07-12 11:59 | Ophthalmologist Pre-Op Note ---
Pre-Operative Progress Note H&P Reviewed The H&P was reviewed, patient examined and no changes noted. Date H&P Reviewed: Jul 12, 2022 Time H&P Reviewed: 10:41 Pre-Op Dx Cataract, Right Eye SALMA OSWALD MD Jul 12, 2022 11:59
--- NOTE | 2022-07-12 12:00 | Ophthalmology Operative Report ---
Cataract removal/placement IOL PREOPERATIVE DIAGNOSIS: Cataract Right Eye POSTOPERATIVE DIAGNOSIS: Cataract Right Eye PROCEDURE: Cataract removal and placement of posterior chamber implant, right eye SURGEON: Gibran Oswald ANESTHESIA: Topical with sedation COMPLICATIONS: None ESTIMATED BLOOD LOSS: Minimal DESCRIPTION OF PROCEDURE: After proper informed consent was obtained, the patient, a 72 female, was taken to the Operating Room and the right eye was anesthetized with tetracaine. The right eye was then prepped and draped in the usual manner. A wire lid speculum was placed. A paracentesis was made at the left hand position. Preservative free lidocaine was injected into the anterior chamber followed by viscoelastic. A clear corneal incision was made in the temporal position. A capsulorrhexis was preformed and the central nuclear and cortical material were removed. The posterior capsule was polished and Sid 19.5 [id number] IOL was placed into the capsular bag. The residual viscoelastic was aspirated and balanced saline solution was injected into the anterior chamber. Moxifloxacin was injected into the anterior chamber. The wound was checked and found to be water tight. The patient tolerated the procedure well without complications. GIBRAN OSWALD MD Jul 12, 2022 12:00
[2022-07-12 12:02] VITALS: BP 147/78
--- NOTE | 2022-07-12 12:40 | Anesthesia-General Post-Op ---
MAC Patient Condition Mental Status/LOC: Same as Preop Cardiovascular: Satisfactory Nausea/Vomiting: Absent Respiratory: Satisfactory Pain: Controlled Complications: Absent Post Op Complications Complications None Follow Up Care/Instructions Patient Instructions None needed. Anesthesiology Discharge Order Discharge Order Patient is doing well, no complaints, stable vital signs, no apparent adverse anesthesia problems. No complications reported per nursing. MARY DIAZ CRNA Jul 12, 2022 12:40
[2022-07-12] MEDS ORDERED: acetaZOLAMIDE ER 500 MG CAP (DIAMOX SEQUELS) PO ONE (13:00)
== END 2022-07-12 12:03 | disposition home or self-care (01) ==
LOC: SDC 10:28
PROVIDERS: ATTEND Specialist
DX: E11.36 Type 2 diabetes mellitus with diabetic cataract (principal); H25.9 Unspecified age-related cataract; Z87.891 Personal history of nicotine dependence; Z79.84 Long term (current) use of oral hypoglycemic drugs; E66.9 Obesity, unspecified; Z68.37 Body mass index [BMI] 37.0-37.9, adult
CPT/HCPCS: 66984; V2632

== ENCOUNTER 2022-07-22 05:33 | Outpatient (CLI) | payer MEDICARE | END 2022-07-22 15:01 | disposition home or self-care (01) | LOC: PREOP 05:33 | PROVIDERS: ATTEND Specialist | DX: Z01.818 Encounter for other preprocedural examination (principal) ==

== ENCOUNTER 2022-07-26 07:30 | Day surgery (SDC) | payer MEDICARE ==
[~2022-07-26] VITALS: Ht 162.5 cm; Wt 100.0 kg
[2022-07-26 08:00] VITALS: BP 179/79
[2022-07-26] MEDS ORDERED: POVIDONE (BETADINE) OPHTH SOLN 5% 30 ML OP ONE (08:00)
[2022-07-26] MEDS ORDERED: MOXIFLOXACIN OPHTH SOLN 5 MG/ML 0.3 ML SYRINGE OP ONE (08:00)
[2022-07-26] MEDS ORDERED: TIMOLOL MALEATE 0.5% 5 ML (TIMOPTIC) BTL OU PRN (08:00)
[2022-07-26] MEDS: TETRACAINE 0.5% OPHTH SOLN 4 ML BTL (SINGLE DOSE ONLY) OU PRN ×4 (08:06→08:29)
[2022-07-26] MEDS: TROPICAMIDE 1% OPH SOLN (MYDRIACYL) 15 ML BTL OP SCH ×3 (08:13→08:29)
[2022-07-26] MEDS: PHENYLEPHRINE 10% OPHTH (NEO-SYN) 5 ML BTL OU SCH ×3 (08:13→08:29)
[2022-07-26] MEDS ORDERED: MIDAZOLAM 2 MG/2 ML (VERSED) VIAL ONE (08:27)
--- NOTE | 2022-07-26 08:41 | Ophthalmologist Pre-Op Note ---
Pre-Operative Progress Note H&P Reviewed The H&P was reviewed, patient examined and no changes noted. Date H&P Reviewed: Jul 26, 2022 Time H&P Reviewed: 08:41 Pre-Op Dx Cataract, Left Eye SALMA OSWALD MD Jul 26, 2022 08:41
[2022-07-26 08:54] VITALS: BP 128/73
--- NOTE | 2022-07-26 09:00 | Ophthalmology Operative Report ---
Cataract removal/placement IOL PREOPERATIVE DIAGNOSIS: Cataract Left Eye POSTOPERATIVE DIAGNOSIS: Cataract Left Eye PROCEDURE: Cataract removal and placement of posterior chamber implant, left eye SURGEON: Gibran Oswald ANESTHESIA: Topical with sedation COMPLICATIONS: None ESTIMATED BLOOD LOSS: Minimal DESCRIPTION OF PROCEDURE: After proper informed consent was obtained, the patient, a 72 female, was taken to the Operating Room and the left eye was anesthetized with tetracaine. The left eye was then prepped and draped in the usual manner. A wire lid speculum was placed. A paracentesis was made at the left hand position. Preservative free lidocaine was injected into the anterior chamber followed by viscoelastic. A clear corneal incision was made in the temporal position. A capsulorrhexis was preformed and the central nuclear and cortical material were removed. The posterior capsule was polished and an Sid 19.5 [id number] was placed into the capsular bag. The residual viscoelastic was aspirated and balanced saline solution was injected into the anterior chamber. Moxifloxacin was injected into the anterior chamber. The wound was checked and found to be water tight. The patient tolerated the procedure well without complications. GIBRAN OSWALD MD Jul 26, 2022 09:00
[2022-07-26 09:11] VITALS: BP 169/72
[2022-07-26] MEDS ORDERED: acetaZOLAMIDE ER 500 MG CAP (DIAMOX SEQUELS) PO ONE (10:15)
--- NOTE | 2022-07-26 14:05 | Anesthesia-General Post-Op ---
MAC Patient Condition Mental Status/LOC: Same as Preop Cardiovascular: Satisfactory Nausea/Vomiting: Absent Respiratory: Satisfactory Pain: Controlled Complications: Absent Post Op Complications Complications None Follow Up Care/Instructions Patient Instructions None needed. Anesthesiology Discharge Order Discharge Order Patient is doing well, no complaints, stable vital signs, no apparent adverse anesthesia problems. No complications reported per nursing. MONICA SOLIS CRNA Jul 26, 2022 14:05
== END 2022-07-26 09:09 | disposition home or self-care (01) ==
LOC: SDC 07:30
PROVIDERS: ATTEND Specialist
DX: E11.36 Type 2 diabetes mellitus with diabetic cataract (principal); H25.9 Unspecified age-related cataract; Z87.891 Personal history of nicotine dependence; E66.9 Obesity, unspecified; Z68.37 Body mass index [BMI] 37.0-37.9, adult; Z79.84 Long term (current) use of oral hypoglycemic drugs
CPT/HCPCS: 66984; V2632

== ENCOUNTER 2022-08-20 05:36 | Outpatient (CLI) | payer MEDICARE ==
[~2022-08-20] VITALS: Ht 162.6 cm; Wt 99.0 kg
[2022-08-21] MEDS ORDERED: CALC-823 PO (13:00)
[2022-08-21] MEDS ORDERED: ASPI-999 PO (13:00)
[2022-08-21] MEDS ORDERED: CHOL200078 PO (13:00)
[2022-08-21] MEDS ORDERED: GLIP5TAB13 PO (13:00)
[2022-08-21] MEDS ORDERED: ASCO500T17 PO (13:00)
== END 2022-08-21 13:07 ==
LOC: PREOP 05:36
PROVIDERS: ATTEND Surgery
DX: Z01.818 Encounter for other preprocedural examination (principal)

== ENCOUNTER 2022-08-27 11:20 | Day surgery (SDC) | payer MEDICARE ==
[~2022-08-27] VITALS: Ht 162.2 cm; Wt 99.0 kg
[~2022-08-27 11:20] MED LIST changes: +ASCO500T17 PO; +ASPI-999 PO; +CALC-823 PO; +CHOL200078 PO
[2022-08-27] MEDS ORDERED: LACTATED RINGERS 1,000 ML IV STA (11:21)
[2022-08-27 11:30] VITALS: BP 188/95
[2022-08-27] MEDS ORDERED: HURRICAINE EXT TUBE (BENZOCAINE) XX PRN (11:30)
[2022-08-27] MEDS ORDERED: proPOfol 200 MG/20 ML (DIPRIVAN) VIAL IV ONE (11:40)
--- NOTE | 2022-08-27 11:43 | Progress Note-Pre Operative ---
Pre-Operative Progress Note Date of Available H&P: Jul 29, 2022 Date H&P Reviewed: Aug 27, 2022 Time H&P Reviewed: 11:40 Pre-Operative Diagnosis: History of Llanos's esophagus, GERD LORRIE ANDERSEN DO Aug 27, 2022 11:43
[2022-08-27 11:55] VITALS: BP 139/67
--- NOTE | 2022-08-27 11:56 | Discharge Inst-Simple/Standard ---
Discharge Inst-Standard Patient Instructions/Follow Up Plan of Care/Instructions/FU: 2 weeks Kathie Activity as Tolerated: Yes Discharge Diet: Regular Diet LORRIE ANDERSEN DO Aug 27, 2022 11:56
[2022-08-27 12:09] VITALS: BP 140/66
[2022-08-27 12:40] VITALS: BP 140/66
--- NOTE | 2022-08-27 14:35 | Anesthesia-General Post-Op ---
MAC Patient Condition Mental Status/LOC: Same as Preop Cardiovascular: Satisfactory Nausea/Vomiting: Absent Respiratory: Satisfactory Pain: Controlled Complications: Absent Post Op Complications Complications None Follow Up Care/Instructions Patient Instructions None needed. Anesthesiology Discharge Order Discharge Order Patient is doing well, no complaints, stable vital signs, no apparent adverse anesthesia problems. No complications reported per nursing. MARY DIAZ CRNA Aug 27, 2022 14:35
--- NOTE | 2022-08-27 21:05 | OPERATIVE REPORT ---
DATE OF SERVICE: 08/27/2022 PREOPERATIVE DIAGNOSES: Gastroesophageal reflux disease, history of Llanos's. POSTOPERATIVE DIAGNOSIS: Hiatal hernia. PROCEDURES: EGD with biopsy. SURGEON: Lorrie Vázquez DO ANESTHESIA: Per SOIL FERTILITY SPECIALIST. ESTIMATED BLOOD LOSS: None. COMPLICATIONS: None. INDICATIONS: The patient is a 72-year-old female with history of Llanos's and GERD symptoms. She understands risks and benefits of the procedure and wishes to proceed. Consent was signed and in the chart. DESCRIPTION OF PROCEDURE: The patient was taken to the endoscopy suite, placed in the left lateral recumbent position. Timeout was performed. Scope was inserted in the mouth, down the esophagus, stomach and duodenum without difficulty. No polyps, masses or ulcerations. Scope was slowly retracted back into the stomach, where it was further insufflated. No polyps, masses, or ulcerations. Biopsy of antrum was obtained. Scope was retroflexed noting a hiatal hernia. No other pathology. Scope was returned to its normal position, slowly withdrawn to distal esophagus, four quadrant biopsy short segment Llanos's appearance obtained. No other pathology. Scope was slowly retracted back to completely remove, noting no other pathology. The patient tolerated the procedure well without any complications. She was taken to recovery room in stable condition. RECOMMENDATIONS: The patient continue on current medications. Will follow up in the office in 2 weeks to discuss pathology results. Recommend repeat EGD in 2-3 years. Job ID: [id number] DocumentID: [id number] Dictated Date: 08/27/2022 11:53:53 Animal Maintenance Supervisor Date: 08/27/2022 21:03:00 Dictated By: LORRIE VÁZQUEZ DO
== END 2022-08-27 12:45 | disposition home or self-care (01) ==
LOC: ENDO 11:20
PROVIDERS: ATTEND Surgery
DX: K29.50 Unspecified chronic gastritis without bleeding (principal); K44.9 Diaphragmatic hernia without obstruction or gangrene; E66.9 Obesity, unspecified; G47.33 Obstructive sleep apnea (adult) (pediatric); Z68.37 Body mass index [BMI] 37.0-37.9, adult; Z87.19 Personal history of other diseases of the digestive system; Z87.891 Personal history of nicotine dependence; Z99.89 Dependence on other enabling machines and devices